=== PATIENT | female | born 1990 | race Caucasian/White ===

== ENCOUNTER 2023-02-06 22:06 | Inpatient (IN) | payer BC ==
[2023-02-06 23:53] LABS: Absolute Lymphocytes (CBC) 2.4 K/uL (0.7-4.9); Hematocrit 34.4 % (36.0-45.0); Lymphocytes % 22.4 % (15.3-44.8); MCV 72.4 fL (80-100); MPV 10.1 fL (7.6-11.3); RBC Red Blood Cell Count 4.75 M/uL (3.86-4.86)
[2023-02-07 00:05] LABS: Albumin 3.7 g/dL (3.4-5.0); Bilirubin Total 0.2 mg/dL (0.2-1.0); Potassium 3.6 mEq/L (3.5-5.1); Protein, Total 7.6 g/dL (6.4-8.2)
[2023-02-07] MEDS ORDERED: ONDANSETRON 4 MG/2 ML VIAL ONE (00:08)
[2023-02-07 00:38] LABS: Specific Gravity 1.007 (1.005-1.030)
[2023-02-07] MEDS ORDERED: MORPHINE 4 MG/ML SYR ONE (00:52)
--- NOTE | 2023-02-07 01:55 | ER ---
Nurse's Notes [facility] Name: Kallie Bethea Age: 33 yrs Sex: Female : 1990 Arrival Date: 02/06/2023 Time: 22:06 Bed 5 Private MD: Diagnosis: Abdominal pain, Generalized;Lower abdominal pain, unspecified;Nausea with vomiting, unspecified Presentation: 02/06 22:26 Chief complaint: Patient states: bilateral lower abdominal pain of 10 with nausea,onset pf1 this AM. Patient stated history of SBO. Patient stated LBM was this AM with normal stool. Coronavirus screen: Vaccine status: Patient reports being unvaccinated. Client denies travel out of the [place] in the last 14 days. At this time, the client does not indicate any symptoms associated with coronavirus-19. Ebola Screen: Patient negative for fever greater than or equal to 101.5 degrees Fahrenheit, and additional compatible Ebola Virus Disease symptoms. Initial Sepsis Screen: Does the patient meet any 2 criteria? No. Patient's initial sepsis screen is negative. Does the patient have a suspected source of infection? No. Patient's initial sepsis screen is negative. Risk Assessment: Do you want to hurt yourself or someone else? Patient reports no desire to harm self or others. 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 Last tetanus immunization: < 10 years ago Flu vaccine is not up to date. - Social history:: Smoking status: Patient denies any tobacco usage or history of. Patient uses alcohol, occasionally. Patient/guardian denies using street drugs. Screenin:05 [facility] ED Fall Risk Assessment (Adult) History of falling in the last 3 months, pf1 including since admission No falls in past 3 months (0 pts) Confusion or Disorientation No (0 pts) Intoxicated or Sedated No (0 pts) Impaired Gait No (0 pts) Mobility Assist Device Used No (0 pt) Altered Elimination No (0 pt) Score/Fall Risk Level 0 - 2 = Low Risk Oriented to surroundings, Maintained a safe environment, Educated pt \T\ family on fall prevention, incl call for assistance when getting out of bed, Assessed \T\ reinforced patient's understanding of fall precautions, Provided non-skid footwear, Hourly rounding (assess needs \T\ fall precautionary measures) done, Used ambulatory aids as needed (educated on \T\ assisted with), Used gait belt as appropriate. Abuse screen: Denies threats or abuse. Nutritional screening: No deficits noted. Tuberculosis screening: No symptoms or risk factors identified. Assessment: 23:00 General: Appears in no apparent distress. uncomfortable, well groomed, well developed, pf1 Behavior is cooperative, appropriate for age, anxious, quiet. 23:00 Pain: Complains of pain in abdomen Pain currently is 10 out of 10 on a pain scale. Pain pf1 began this AM approximately at 0900. Neuro: No deficits noted. Level of Consciousness is awake, alert, obeys commands, Oriented to person, place, time, situation. Cardiovascular: No deficits noted. Capillary refill < 3 seconds Patient's skin is warm and dry. Respiratory: Airway is patent Respiratory effort is even, unlabored, Respiratory pattern is regular, symmetrical, Breath sounds are clear bilaterally. GI: Abdomen is round non-distended, Bowel sounds present X 4 quads. Abd is soft Abdomen is tender to palpation in right lower quadrant and left lower quadrant. : No deficits noted. No signs and/or symptoms were reported regarding the genitourinary system. EENT: No deficits noted. No signs and/or symptoms were reported regarding the EENT system. Derm: No deficits noted. No signs and/or symptoms reported regarding the dermatologic system. Musculoskeletal: No deficits noted. No signs and/or symptoms reported regarding the musculoskeletal system. 23:24 Reassessment: Patient appears in no apparent distress at this time. Patient and/or jb4 family updated on plan of care and expected duration. Pain level reassessed. Patient is alert, oriented x 3, equal unlabored respirations, skin warm/dry/pink. 07/10 01:00 Reassessment: Patient appears in no apparent distress at this time. Patient and/or jb4 family updated on plan of care and expected duration. Pain level reassessed. Patient is alert, oriented x 3, equal unlabored respirations, skin warm/dry/pink. 02:00 Reassessment: Patient appears in no apparent distress at this time. Patient and/or jb4 family updated on plan of care and expected duration. Pain level reassessed. Patient is alert, oriented x 3, equal unlabored respirations, skin warm/dry/pink. 03:00 Reassessment: Patient appears in no apparent distress at this time. Patient and/or jb4 family updated on plan of care and expected duration. Pain level reassessed. Patient is alert, oriented x 3, equal unlabored respirations, skin warm/dry/pink. Vital Signs: 02/06 22:26 BP 145 / 82; Pulse 80; Resp 18; Temp 98.8; Pulse Ox 100% on R/A; Weight 74.84 kg; pf1 Height 5 ft. 0 in. ; Pain 05/10; 02/07 00:00 BP 125 / 64; Pulse 81; Resp 16; Pulse Ox 98% on R/A; jb4 00:27 BP 117 / 63; Pulse 88; Resp 16; Pulse Ox 100% ; kl 01:45 BP 125 / 65; Pulse 90; Resp 16; Pulse Ox 100% on R/A; jb4 03:00 BP 128 / 72; Pulse 72; Resp 16; Pulse Ox 100% on R/A; jb4 02/06 22:26 Body Mass Index 32.22 (74.84 kg, 152.4 cm) pf1 02/06 22:26 Pain Scale: Adult pf1 ED Course: 02/06 22:09 Patient arrived in ED. ja2 22:15 Jean Ward MD is Attending Physician. kdr 22:31 Triage completed. pf1 23:00 No provider procedures requiring assistance completed. Missed attempt(s): 22 gauge in pf1 left antecubital area. Bleeding controlled, band aid applied, catheter tip intact. 23:00 Patient has correct armband on for positive identification. Placed in gown. Bed in low pf1 position. Call light in reach. 23:08 Hira Esparza RN is Primary Nurse. jb4 23:50 Transvaginal Study (Probe) In Process Unspecified. EDMS 02/07 01:03 CT Abd/Pelvis - IV Contrast Only In Process Unspecified. EDMS 01:54 Joni Dove MD is Hospitalizing Provider. kdr 01:54 Brandyn Dove MD is Hospitalizing Provider. kdr Administered Medications: 00:10 Drug: Ondansetron IVP 4 mg Route: IVP; Site: right antecubital; jb4 00:45 Drug: morphine IVP or IV 4 mg Route: IVP; Infused Over: 4 mins; Site: right antecubital;jb4 02:00 Drug: Promethazine IVP 25 mg Route: IVP; Site: right antecubital; kl 02:05 Drug: fentaNYL (PF) IVP 50 mcg Route: IVP; Site: right antecubital; kl 02:05 Drug: NS 0.9% IV 1000 ml Route: IV; Rate: 1 bolus; Site: right antecubital; kl 03:17 Not Given (Physician Discretion): NS 0.9% IV 1000 ml IV at 125 ml/hr continuous jb4 Outcome: 01:55 Decision to Hospitalize by Provider. kdr 03:31 Patient left the ED. kl Signatures: Dispatcher [employer] EDMS Casandra Wells RN RN Jean Wisdom MD MD kdr Hira Esparza RN RN jbJazmin Garcia Pamala, RN RN pf1
--- NOTE | 2023-02-07 01:56 | EDPHYS ---
Physician Documentation [facility] Name: Kallie Bethea Age: 33 yrs Sex: Female : 1990 Arrival Date: 02/06/2023 Time: 22:06 Bed 5 Private MD: ED Physician Jean Ward HPI: 02/07 00:21 This 33 yrs old Female presents to ER via Ambulatory with complaints of Abdominal Pain, kdr Nausea. 00:21 Patient presents with lower abdominal pain more left than right. This started this kdr morning. She states she gets this kind of pain periodically. Often it is associated with her periods. Pain is presently a 10 out of 10. Patient states that she does have a history of small bowel obstruction however she did have a bowel movement this morning which was normal in color and consistency. She states that she normally has similar though not as severe abdominal pain surrounding her periods, today was simply much worse than normal but not unknown to her. She has not had a prior work-up for this situation.. Onset: The symptoms/episode began/occurred acutely, suddenly, this morning. Severity of symptoms: At their worst the symptoms were severe incapacitating in the emergency department the symptoms are unchanged. The patient has experienced similar episodes in the past, multiple times. The patient has not recently seen a physician. 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 Last tetanus immunization: < 10 years ago Flu vaccine is not up to date. - Social history:: Smoking status: Patient denies any tobacco usage or history of. Patient uses alcohol, occasionally. Patient/guardian denies using street drugs. ROS: 02/07 00:21 Constitutional: Negative for fever, chills, and weight loss, Eyes: Negative for injury, kdr pain, redness, and discharge, ENT: Negative for injury, pain, and discharge, Neck: Negative for injury, pain, and swelling, Cardiovascular: Negative for chest pain, palpitations, and edema, Respiratory: Negative for shortness of breath, cough, wheezing, and pleuritic chest pain, Back: Negative for injury and pain, : Negative for injury, bleeding, discharge, and swelling, MS/Extremity: Negative for injury and deformity, Skin: Negative for injury, rash, and discoloration, Neuro: Negative for headache, weakness, numbness, tingling, and seizure activity. Psych: Negative for depression, anxiety, suicide ideation, homicidal ideation, and hallucinations, Allergy/Immunology: Negative for hives, rash, and allergies, Endocrine: Negative for neck swelling, polydipsia, polyuria, polyphagia, and marked weight changes, Hematologic/Lymphatic: Negative for swollen nodes, abnormal bleeding, and unusual bruising. Abdomen/GI: Positive for abdominal pain, nausea, Negative for constipation, abdominal cramps, abdominal distension, anorexia, dysphagia, hematemesis, black/tarry stool, rectal pain, rectal bleeding, bowel incontinence. Exam: 00:21 Constitutional: This is a well developed, well nourished patient who is awake, alert, kdr and in no acute distress. Head/Face: Normocephalic, atraumatic. Eyes: Pupils equal round and reactive to light, extra-ocular motions intact. Lids and lashes normal. Conjunctiva and sclera are non-icteric and not injected. Cornea within normal limits. Periorbital areas with no swelling, redness, or edema. Neck: Trachea midline, no thyromegaly or masses palpated, and no cervical lymphadenopathy. Supple, full range of motion without nuchal rigidity, or vertebral point tenderness. No Meningismus. Chest/axilla: Normal chest wall appearance and motion. Nontender with no deformity. No lesions are appreciated. Cardiovascular: Regular rate and rhythm with a normal S1 and S2. No gallops, murmurs, or rubs. Normal PMI, no JVD. No pulse deficits. Respiratory: Lungs have equal breath sounds bilaterally, clear to auscultation and percussion. No rales, rhonchi or wheezes noted. No increased work of breathing, no retractions or nasal flaring. Back: No spinal tenderness. No costovertebral tenderness. Full range of motion. Skin: Warm, dry with normal turgor. Normal color with no rashes, no lesions, and no evidence of cellulitis. MS/ Extremity: Pulses equal, no cyanosis. Neurovascular intact. Full, normal range of motion. Neuro: Awake and alert, GCS 15, oriented to person, place, time, and situation. Cranial nerves II-XII grossly intact. Motor strength 5/5 in all extremities. Sensory grossly intact. Cerebellar exam normal. Normal gait. Psych: Awake, alert, with orientation to person, place and time. Behavior, mood, and affect are within normal limits. 00:21 Abdomen/GI: Inspection: obese Bowel sounds: active, Palpation: soft, mild abdominal tenderness, in the anterior aspect of left lateral abdomen and left lower quadrant. Vital Signs: 02/06 22:26 BP 145 / 82; Pulse 80; Resp 18; Temp 98.8; Pulse Ox 100% on R/A; Weight 74.84 kg; pf1 Height 5 ft. 0 in. ; Pain 10/10; 02/07 00:00 BP 125 / 64; Pulse 81; Resp 16; Pulse Ox 98% on R/A; jb4 00:27 BP 117 / 63; Pulse 88; Resp 16; Pulse Ox 100% ; kl 01:45 BP 125 / 65; Pulse 90; Resp 16; Pulse Ox 100% on R/A; jb4 03:00 BP 128 / 72; Pulse 72; Resp 16; Pulse Ox 100% on R/A; jb4 02/06 22:26 Body Mass Index 32.22 (74.84 kg, 152.4 cm) pf1 02/06 22:26 Pain Scale: Adult pf1 MDM: 00:21 Data reviewed: vital signs, nurses notes, lab test result(s), radiologic studies. kdr 01:55 Patient medically screened. kdr 02/06 22:42 Order name: CBC with Diff; Complete Time: 00:18 kdr 02/06 22:42 Order name: CMP; Complete Time: 00:18 kdr 02/06 22:42 Order name: Lipase; Complete Time: 00:18 kdr 02/06 23:03 Order name: Test, Urine; Complete Time: 01:16 kdr 02/06 23:03 Order name: US Transvaginal Study (Probe) kdr 02/07 00:19 Order name: CT Abd/Pelvis - IV Contrast Only kdr 02/06 22:42 Order name: IV Saline Lock; Complete Time: 23:08 kdr 02/06 22:42 Order name: Labs collected and sent; Complete Time: 23:08 kdr Administered Medications: 00:10 Drug: Ondansetron IVP 4 mg Route: IVP; Site: right antecubital; jb4 00:45 Drug: morphine IVP or IV 4 mg Route: IVP; Infused Over: 4 mins; Site: right antecubital;jb4 02:00 Drug: Promethazine IVP 25 mg Route: IVP; Site: right antecubital; kl 02:05 Drug: fentaNYL (PF) IVP 50 mcg Route: IVP; Site: right antecubital; kl 02:05 Drug: NS 0.9% IV 1000 ml Route: IV; Rate: 1 bolus; Site: right antecubital; kl 03:17 Not Given (Physician Discretion): NS 0.9% IV 1000 ml IV at 125 ml/hr continuous jb4 Disposition Summary: 02/07/23 01:55 Hospitalization Ordered Hospitalization Status: Inpatient Admission kdr Provider: Brandyn Dove kdr Location: Telemetry/MedSur (Inpatient) kdr Condition: Fair kdr Problem: an acute exacerbation kdr Symptoms: have improved kdr Bed/Room Type: Standard kdr Room Assignment: 207(02/07/23 02:36) cg Diagnosis - Abdominal pain, Generalized kdr - Lower abdominal pain, unspecified kdr - Nausea with vomiting, unspecified kdr Forms: - Medication Reconciliation Form kdr - SBAR form kdr Signatures: Dispatcher [employer] EDCasandra Rosado RN RN kl Rittger, Kevin, MD MD kdr Elizabeth Becker RN RN cg Bryson, James, RN RN jb4 Wendi Sullivan RN RN pf1 Corrections: (The following items were deleted from the chart) 02:36 01:55 kdr cg
[2023-02-07] MEDS ORDERED: PROMETHAZINE INJ 25 MG/ML AMP ONE (02:13)
[2023-02-07] MEDS ORDERED: NA CHLORIDE 0.9% 1,000 ML ONE (02:14)
[2023-02-07] MEDS ORDERED: FENTANYL CITR 100 MCG/2 ML ONE (02:14)
--- NOTE | 2023-02-07 02:32 | P.HP ---
Certification for Inpatient Patient admitted to: Inpatient With expected LOS: >2 Midnights Patient will require the following post-hospital care: None Practitioner: I am a practitioner with admitting privileges, knowledge of patient current condition, hospital course, and medical plan of care. Services: Services provided to patient in accordance with Admission requirements found in Title 42 Section 412.3 of the Code of Federal Regulations <Jan Wang - Last Filed: 02/07/23 02:29> Patient History Date of Service: 02/07/23 Reason for admission: SBO History of Present Illness: 33-year-old female with history of anxiety, insomnia, previous SBO presents to the emergency department chief complaint of nausea, vomiting, lower abdominal pain. She reports she began to develop bowel obstructions a few years ago, she had 3-4 bowel obstructions while living in [place] before a surgeon performed an ex lap on her to attempt to determine the cause of her bowel obstructions, she reports that the surgeon told her her bowel had adhesed to her ovary, it was released and she had improvement in her symptoms/frequency of bowel obstructions, at that time apparently there was a yo in one of her ureters as well requiring her to have surgery to repair the ureter as well. Since the surgery back in 2018 or 2019 she has had 1-2 other small bowel obstructions, she has not needed additional surgery since then. She began having abdominal pain on the morning of 02/06/2023, she reports a normal bowel movement that morning, puente s had 2 episodes of vomiting throughout the course of the day. She was evaluated in the emergency department her labs are significant for hemoglobin 10.7 hematocrit 34.4 glucose [address] abdomen pelvis showed possible early small bowel obstruction versus ileus. Patient still having moderate pain, nausea will need to be admitted for further management. Patient declined NG tube at this time, will except if symptoms are worsening. 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 moist/pink, EOMI, Sclerae nonicteric Neck: Supple, 2+ carotid pulse no bruit, No LAD, Without JVD or thyroid abnormality Respiratory: Clear to auscultation bilaterally, Normal air movement Cardiovascular: No edema, Regular rate/rhythm, Normal S1 S2 Capillary refill: <2 Seconds Gastrointestinal: Hypoactive, Tenderness (Mild abdominal tenderness left lower quadrant, epigastric) Musculoskeletal: No tenderness Integumentary: No rashes Neurological: Normal speech, Normal strength at 5/5 x4 extr, Normal tone, Normal affect - Studies Laboratory Data (last 24 hrs) 02/06/23 23:00: Sodium 139, Potassium 3.6, BUN 10, Creatinine 0.79, Glucose 111 H, Total Bilirubin 0.2, AST 11 L, ALT 24, Alkaline Phosphatase 95, Lipase 22 02/06/23 23:00: WBC 10.60, Hgb 10.7 L, Hct 34.4 L, Plt Count 310 <Jan Wang - Last Filed: 02/07/23 02:29> - Studies Laboratory Data (last 24 hrs) 02/06/23 23:00: Sodium 139, Potassium 3.6, BUN 10, Creatinine 0.79, Glucose 111 H, Total Bilirubin 0.2, AST 11 L, ALT 24, Alkaline Phosphatase 95, Lipase 22 02/06/23 23:00: WBC 10.60, Hgb 10.7 L, Hct 34.4 L, Plt Count 310 <Brandyn Dove - Last Filed: 02/07/23 17:06> Assessment and Plan - Plan Assessment: SBO Anxiety/insomnia Plan: SBO N.p.o., IVF, as needed pain medications and antiemetics, ambulation encouraged. General surgery consult in place. Declined NG tube at this time states symptoms have improved, agreeable to NG tube if she has worsening pain, vomiting or distention. Appreciate further per neurosurgery. Anxiety/insomnia Continue home meds when diet is advanced. DVT PPX: SCD Code status: Full Discharge Plan: Home Plan to discharge in: 48 Hours - Advance Directives Does patient have a Living Will: No Does patient have a Durable POA for Healthcare: No - Code Status/Comfort Care Code Status Assessed: Yes (Full code) Critical Care: No Time Spent Managing Pts Care (In Minutes): 55 <Jan Wang - Last Filed: 02/07/23 02:29> - Plan Seen and examined on rounds this afternoon doing better +flatus, No BM +nausea, minimal discomfort, still feels bloated KUB less obstructive pattern as seen on CT Dr. Quintanilla consulted anticipate slow advancement continue IVF, antibiotics anticipate dc in 24-48hrs <Brandyn Dove - Last Filed: 02/07/23 17:06>
[2023-02-07] MEDS: NA CHLORIDE 0.9% 1,000 ML IV SCH ×4 (03:46→15:36)
[2023-02-07] MEDS ORDERED: ONDANSETRON 4 MG/2 ML VIAL IV PRN (03:46)
[2023-02-07 05:03] VITALS: BMI 32.2
[2023-02-07 05:17] LABS: Absolute Lymphocytes (CBC) 2.2 K/uL (0.7-4.9); Hematocrit 30.5 % (36.0-45.0); Lymphocytes % 20.8 % (15.3-44.8); MCV 72.9 fL (80-100); MPV 9.8 fL (7.6-11.3); RBC Red Blood Cell Count 4.18 M/uL (3.86-4.86)
--- NOTE | 2023-02-07 08:04 | RAD REPORT ---
EXAM DESCRIPTION: RAD - Abdomen 1 View (KUB) - 02/07/2023 5:19 am CLINICAL HISTORY: eval sbo COMPARISON: Abdomen Pelvis W Contrast dated 02/07/2023 TECHNIQUE: Single AP view of the abdomen. FINDINGS: Excreted contrast in the right renal collecting system and bladder. Nonobstructive bowel gas pattern although paucity of bowel gas noted along the lower abdomen, nonspec ific. Mild stool burden along the ascending colon. No air-fluid levels, free air, or pneumatosis. No suspicious calcifications. No significant bony abnormality. IMPRESSION: Nonspecific paucity of bowel gas are noted along the lower abdomen. Nonobstructive bowel gas pattern otherwise. Findings as above.
[2023-02-07] MEDS: MORPHINE 2 MG/ML SYR IV PRN (09:10)
[2023-02-07] MEDS: CIPROFLOXACIN 400mg IV 400 MG/200 ML BAG IV SCH ×2 (09:20→19:57)
[2023-02-07] MEDS: METRONIDAZOLE 500mg IVPB 500 MG/100 ML BAG IV SCH ×2 (09:21→17:53)
[2023-02-07] MEDS ORDERED: ONDANSETRON 4 MG/2 ML VIAL IV ONE (12:37)
--- NOTE | 2023-02-07 14:06 | RAD REPORT ---
EXAM DESCRIPTION: CT - Abdomen Pelvis W Contrast - 02/07/2023 7:19 am CLINICAL HISTORY: 33 years, Female, ABD PAIN COMPARISON: None. TECHNIQUE: Contrast-enhanced images of the abdomen and pelvis were performed utilizing 5 mm slice th ickness at 5 mm interval reconstruction from the lung bases to the ischial tuberosities after the adm inistration of IV contrast. In addition multiplanar reformats in the coronal and sagittal plane were obtained and reviewed. This exam was performed according to our departmental dose-optimization protocol, which includes auto mated exposure control, adjustment of the mA and/or kV according to patient size and/or use of iterat pieter reconstruction technique. FINDINGS: The lung bases demonstrate to be clear. The liver, pancreas, spleen and adrenal glands demonstrate to be unremarkable, no focal lesions are n oted. The gallbladder demonstrate to be within normal limits. There is no evidence for significant in flammatory changes. The common bile duct demonstrate to be within normal limits. The kidneys demonstrate normal uptake of contrast media. No evidence for nephrolithiasis and/or hydro nephrosis. Grossly the unopacified stomach, small bowel and large bowel demonstrate to be within normal limits. There are minimally dilated distal small bowel loops extending down to the pelvis with fecalization d istal small bowel loop. No evidence for significant transition point and findings could correspond to partial bowel obstruction/or ileus. The large bowel is unremarkable. There is mild fecal stasis.. The urinary bladder demonstrate to be unremarkable. The uterus demonstrate to be within normal limi ts. There are left adnexal cystic lesion measuring 3.6 x 3.6 cm on image 65. The aorta demonstrate to be normal. There is no retroperitoneal lymphadenopathy. There is no evidence for ascites/or abno rmal fluid collections. The rest of the soft tissue and bony structures are within normal limits. IMPRESSION: Minimally dilated distal small bowel loops extending down to the pelvis with fecalizatio n distal small bowel loop. No evidence for significant transition point, findings could correspond to partial bowel obstruction/or ileus correlate clinically. 3.6 cm left adnexal simple-appearing cyst. No follow-up imaging is recommended. Reference: JACR 2019;17(2):[id number] Electronically signed by: Jim Martinez MD 02/07/2023 1:29 AM CDT Due to temporary technical issues with the PACS/Fluency reporting system, reports are being signed by the in house radiologist without review as a courtesy to ensure prompt reporting. The interpreting r adiologist is fully responsible for the content of the report.
--- NOTE | 2023-02-07 14:09 | RAD REPORT ---
EXAM DESCRIPTION: US - Transvaginal Study Probe - 02/06/2023 11:48 pm CLINICAL HISTORY: 33 years Female ABD PAIN COMPARISON: None TECHNIQUE: Transabdominal and endovaginal pelvic ultrasound was performed. FINDINGS: The uterus appears unremarkable and measures 8.2 cm longitudinally.. The endometrial strip e appears unremarkable and measures 7 mm in thickness.. The right ovary measures 3.1 x 2 x 2.3 cm. The right ovary appears unremarkable. There is normal bloo d flow seen within the ovary. The left ovary measures 4.3 x 4.1 x 3.6 cm. Dominant follicles in the left ovary, largest measuring a pproximately 2.3 cm in diameter... There is normal blood flow seen within the left ovary. IMPRESSION: 1. Dominant follicles in the left ovary, largest measuring approximately 2.3 cm in sabine meter. 2. Vascular flow documented in the ovaries bilaterally. Electronically signed by: Jeremy Nielsen MD 02/07/2023 12:26 AM CDT Due to temporary technical issues with the PACS/Fluency reporting system, reports are being signed by the in house radiologist without review as a courtesy to ensure prompt reporting. The interpreting r adiologist is fully responsible for the content of the report.
[2023-02-07] MEDS ORDERED: MINERAL OIL 30 ML UCUP PO ONE (14:47)
[2023-02-07] MEDS ORDERED: NA CHLORIDE 0.9% 500 ML IV ONE (14:50)
--- NOTE | 2023-02-07 15:40 | P.CNS ---
Date of Consult: 02/07/23 PC: This 33-year-old female presented to the emergency room with severe abdominal pain for diagnosis and treatment. HPC: Patient has recently moved into the area from [place]. She noticed over the last day or so she has been having some abdominal pain. Describes as very severe. Has not been able to have bowel movements. PSHx: Patient has had previous exploratory laparotomy with lysis of adhesions. PMHx: Negative Social Hx: Has some food allergies Sys R: No cough, wheeze, shortness of breath. No chest pain or palpitations. Denies any urinary complaints. States that she has been drinking a lot of water, not being on physical activity. Has noticed that over the last 12 hours or so however her abdomen has making a lot of a lot of noise. No BM yet, but thinks she is about to pass gas. O/E: Awake alert vital signs are stable HEENT: Negative Chest: Chest movement equal bilaterally Abd: Mildly distended minimal tenderness [place]: Intact Data: CT exam demonstrates small bowel down in the true pelvis. Also has some fecalization of the distal portion of her small bowel. Stool is seen from the right colon around to almost descending colon. Impression: GI dysmotility Plan: I will give her a bolus of IV fluids, encourage patient to ambulate, we will also start her on some mineral oil. I anticipate this problem should resolve in the next 12 to 24 hours. She does not require surgical intervention at this time.
--- NOTE | 2023-02-07 20:06 | P.PN ---
Date of Service: 02/08/23 Subjective: ROS: 10 point ROS as noted above, otherwise negative Physical Exam: Gen: Alert, NAD, AOx3 HEENT: normal conjunctiva, sclera anicteric CV: regular rate & rhythm, no edema Pulm: non-labored respirations on room air, clear bilaterally Abd: soft,mild epigastric tenderness, non-distended MSK: no joint tenderness Neuro: normal speech, normal affect, moves all extremities Problem List: 1. SBO 2. Anxiety/insomnia Plan: NPO Continue IVF PRN pain medications and antiemetics Continue Cipro and Flagyl (02/07-) ambulation encouraged General surgery consulted Continue home meds when diet is advanced. VTE: SCD
[2023-02-08] MEDS: METRONIDAZOLE 500mg IVPB 500 MG/100 ML BAG IV SCH ×3 (00:17→17:05)
[2023-02-08] MEDS: NA CHLORIDE 0.9% 1,000 ML IV SCH ×2 (02:28→11:50)
[2023-02-08] MEDS: MORPHINE 2 MG/ML SYR IV PRN (03:35)
[2023-02-08 04:13] LABS: Absolute Lymphocytes (CBC) 2.3 K/uL (0.7-4.9); Hematocrit 30.7 % (36.0-45.0); Lymphocytes % 30.7 % (15.3-44.8); MCV 73.2 fL (80-100); MPV 9.8 fL (7.6-11.3); RBC Red Blood Cell Count 4.19 M/uL (3.86-4.86)
[2023-02-08 04:21] LABS: Potassium 3.6 mEq/L (3.5-5.1)
[2023-02-08] MEDS ORDERED: KCL 20 MEQ/100 mL IVPB 20 MEQ/100 ML BAG IV SCH (05:00)
--- NOTE | 2023-02-08 08:03 | RAD REPORT ---
EXAM DESCRIPTION: RAD - Abdomen 1 View (KUB) - 02/08/2023 5:08 am CLINICAL HISTORY: eval sbo Pain COMPARISON: Abdomen 1 View (KUB) dated 02/07/2023 FINDINGS: The bowel gas pattern is non-obstructive. No evidence of free air or pneumatosis. No suspi cious calcifications. No significant bony findings. Moderate constipation. IMPRESSION: Moderate constipation.
[2023-02-08] MEDS ORDERED: MINERAL OIL 30 ML UCUP PO ONE (10:46)
[2023-02-08] MEDS: CIPROFLOXACIN 400mg IV 400 MG/200 ML BAG IV SCH (11:48)
[2023-02-08 13:28] VITALS: O2SAT 98
--- NOTE | 2023-02-08 14:20 | P.PN ---
Date of Service: 02/08/23 S: Patient states she feels much better today, has had been having a lot of rumblings in her belly. Passing a lot of gas per rectum. Also had small bowel movement. O: Abdomen soft, nontender, mildly distended no guarding or rebound A: Patient's partial SBO appears to be resolving. P: Clinically the patient is much improved since her admission. I feel her partial SBO has virtually resolved. I have ordered some more mineral oil for her today. We have discussed long-term maintenance, with maintaining hydration. Possible surgical consultation in [place] regarding possible laparoscopy and/or release of adhesions as well as colonoscopy may be pertinent for this patient. She understands and wants to proceed in that direction.
[2023-02-08 17:10] VITALS: BP 109/53; TEMP 98.3
== END 2023-02-08 18:25 | disposition home or self-care (01) | DRG 390 ==
LOC: ER 22:06 → 2ND 02-07 02:22
PROVIDERS: ADMIT Hospitalist; ATTEND Hospitalist
DX: K56.600 Partial intestinal obstruction, unspecified as to cause (principal); G47.00 Insomnia, unspecified; F41.9 Anxiety disorder, unspecified; Z91.018 Allergy to other foods; Z28.310 Unvaccinated for COVID-19
CPT/HCPCS: 36415; 74018; 74177; 76830; 80048; 80053; 81025; 83690; 85025; 96374; 96375; 99284; J0744; J2270; J2405; J2550; J3010; J3480; J7030; Q9967

== ENCOUNTER 2024-11-22 11:14 | Emergency (ER) | payer BC ==
--- OUTSIDE RECORDS SUMMARY | 2024-11-22 11:18 | XMS REPORT | Continuity of Care Document ---
Author Name Unknown Address [address] [facility] Jonathon. [address] [place] [address] [facility] Address [address] [facility]. 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 Name Role Phone Esther Ramirez Primary Care Physician ROBIN MEDINA Attending Clinician Unavailable ROBIN MEDINA Attending Clinician Unavailable AISHWARYA MOHR Attending Clinician Unavailable LES SOTO Attending Clinician Unavailab LES Banerjee Attending Clinician Unavailab WESTON Martin Attending Clinician Unavailable CARMELO VU Attending Clinician Unavailable Carmelo Vu MD Attending Clinician [phone] Les Soto NP Attending Clinician [phone], [facility] Attending Clinician Unavailable Jazmin Joyner Attending Clinician + Doctor Unassigned, [place] Attending Clinician U Jazmin Dumont Attending Clinician + Doctor Unassigned, [place] Attending Clinician U LULU Davis Attending Clinician Unavailable Carmelo Vu MD Attending Clinician [phone] JAZMIN ADAMS Attending Clinician Unavailable HERNANDEZ ROCA Attending Clinician Unavailtila Welch MD, Harpreet Attending Clinician [phone] ABEL SANTO Attending Clinician Unavailable ABEL SANTO Attending Clinician Unavailable Jena Martinez Attending Clinician [phone], [facility] Attending Clinician Unavailable [facility] Attending Clinician Wu Manning MD Attending Clinician WU DAVIS Attending Clinician WU Manning Attending Clinician Coy Azul MD Attending Clinician Draw, [facility] Attending Clinician JENA Tucker Attending Clinician Unavailtila e Payers Payer Name Policy Type Policy Number Effective Date Expirati on Date Source [facility] [id number] 2023 00:00:00 Allergies, Adverse Reactions, Alerts Allergy Name Allergy Type Status Severity Reaction(s) Onset Date Inactive Date Treating Clinician Comments Source Avocado Propensi ty to adverse reaction s Active Unknown - See comments - 00:00: 00 [facility] Cantalou pe Propensi ty to adverse reaction s Active Unknown - See comments - 00:00: 00 [facility] Coconut Propensi ty to adverse reaction s Active Unknown - See comments - 00:00: 00 [facility] CANTALOU PE Food Active Unknown-Cmnt - 00:00: 00 [facility] COCONUT DRUG INGREDI Active Unknown-Cmnt - 00:00: 00 [facility] AVOCADO DRUG INGREDI Active Unknown-Cmnt - 00:00: 00 [facility] TOMATO DRUG INGREDI Active Other-Cmnt 2022-08 00:00: 00 [facility] Tomato Propensi ty to adverse reaction s Active Other - See comments 2022-08 00:00: 00 [facility] NO KNOWN ALLERGIE S Drug Class Active [facility] Social History Social Habit Start Date Stop Date Quantity Comments Source History of tobacco use Cigarette Smoker [facility] ASSERTION Not [facility] History of Social function 2024-11-05 00:00:00 2024-11-05 00:00:00 [facility] Alcoholic beverage intake 2024-11-05 00:00:00 2024-11-05 00:00:00 Ex-drinker (finding) [facility] Alcohol intake 2023-09-19 00:00:00 2023-09-19 00:00:00 Ex-drinker (finding) [facility] Tobacco use and exposure 2023-06-27 00:00:00 2023-06-27 00:00:00 Smokeless tobacco non-user [facility] Sex assigned at 1990 00:00:00 1990 00:00:00 [facility] Smoking Status Start Date Stop Date Source Tobacco smoking consumption unknown [facility] Ex-smoker 2023-06-27 00:00:00 2023-06-27 00:00:00 [facility] Medications Ordered Medication Name Filled Medication Name Start Date Stop Date Current Medication? Ordering Clinician Indication Dosage Frequency Signature (SIG) Comments Components Source doxepin 25 mg capsule 11-05 00:00: 00 Yes [id number] 25mg Take 1 capsule by mouth at bedtime. [facility] cyanocobala min 1,000 mcg/mL injection 11-05 00:00: 00 Yes [id number] 1000ug inject 1 mL under the skin every 14 (fourteen) days. Twice monthly. [facility] Syringe-Nee dle, Safety,Disp Un 3 mL 25 gauge x 5/8" Syrg 11-05 00:00: 00 Yes [id number] Use as directed [facility] SERTraline 25 mg tablet 11-05 00:00: 00 Yes [id number] 25mg Take 1 tablet by mouth in the morning. [facility] prazosin 2 mg capsule 11-05 00:00: 00 11-05 00:00 :00 Yes [id number] 4mg Take 2 capsules by mouth at bedtime. [facility] HYDROXYZINE 50 mg tablet 2023-08 2-16 00:00: 00 Yes [id number] 50mg TAKE 1 TABLET BY MOUTH AT BEDTIME NEEDED FOR ANXIETY (AND INSONMIA). [facility] triamcinolo ne acetonide 0.1 % topical cream 2023-08 00:00: 00 Yes 1% Dylan Preciado doxycycline monohydrate 100 mg capsule 2023-08 00:00: 00 Yes 1mg Dylan Preciado prazosin 2 mg capsule 2023-0816 00:00: 00 11-05 00:00 :00 No [id number] 2mg Take 1 capsule by mouth at bedtime. [facility] SERTRALINE 25 mg tablet 2023-08 00:00: 00 11-05 00:00 :00 No [id number] TAKE BY MOUTH 1/2 TABLET IN THE MORNING [facility] hydrOXYzine 50 mg tablet 04-11 00:00: 00 07-16 00:00 :00 No [id number] 50mg TAKE 1 TABLET BY MOUTH AT BEDTIME NEEDED FOR ANXIETY (AND INSONMIA). [facility] cyanocobala min (DODEX) injection 2,000 mcg 03-16 15:00: 00 03-17 02:59 :00 No [id number] 2000ug [facility] prazosin 1 mg capsule 03-16 00:00: 00 05-16 00:00 :00 No [id number] 1mg Take 1 capsule by mouth at bedtime. 1 mg at bedtime, after 2 to 3 days increase dose to 2 mg at bedtime [facility] hydrOXYzine 50 mg tablet 03-16 00:00: 00 04-11 00:00 :00 No [id number] 50mg Take 1 tablet by mouth at bedtime as needed for Anxiety (and Insonmia). [facility] TRAZODONE 50 mg tablet 02-22 00:00: 00 03-16 00:00 :00 No [id number] 25mg TAKE 1/2 TABLET BY MOUTH AT BEDTIME [facility] NaCl 0.9% (NS) bolus infusion 1,000 mL 01-25 19:45: 00 01-25 20:25 :00 No 1000mL at 999 mL/hr, 1,000 mL, IV Piggyback, ONCE, 1 dose, On Myrtle 01/26/24 at 1445, STAT [facility] Lactobacill no.46/B.tutu robert (PROBIOTIC- 10 ORAL) 01-25 16:08: 06 Yes 10mg Take by mouth. Women's probiotic pearls [facility] B Complex Vitamins tablet 01-25 00:00: 00 Yes [id number] 1{tbl} Take 1 tablet by mouth in the morning. [facility] Cholecalcif selma, Vitamin D3, (VITAMIN D3) 125 mcg (5,000 unit) tablet 01-25 00:00: 00 Yes [id number] 5000U Take 1 tablet by mouth in the morning. [facility] ferrous sulfate 325 mg (65 mg iron) EC tablet 01-01 08:20: 26 Yes 325mg Take 1 tablet by mouth in the morning and 1 tablet at noon and 1 tablet in the evening. Take with meals. [facility] traZODone 50 mg tablet 01-01 00:00: 00 02-22 00:00 :00 No [id number] 25mg Take 0.5 tablets by mouth at bedtime. [facility] SERTRALINE 25 mg tablet 11-07 00:00: 00 05-10 00:00 :00 No [id number] TAKE BY MOUTH 1/2 TABLET IN THE MORNING [facility] mupirocin 2 % ointment 10-16 00:00: 00 01-01 00:00 :00 No [id number] Apply to area(s) 3 (three) times daily. To affected are on breast [facility] clindamycin 2 % cream 10-16 00:00: 00 10-22 04:59 :00 No [id number] 1{appli cator} Insert 1 Applicator into vagina at bedtime for 5 days. [facility] amitriptyli ne 10 mg tablet 2024-0 3-07 00:00: 00 01-01 00:00 :00 No [id number] 10mg Take 1 tablet by mouth at bedtime. [facility] SERTraline 25 mg tablet 3-07 00:00: 00 11-07 00:00 :00 No [id number] 12.5mg Take 0.5 tablets by mouth in the morning. [facility] SERTraline 25 mg tablet 2- 00:00: 00 10-04 00:00 :00 No [id number] 12.5mg Take 0.5 tablets by mouth in the morning for 90 days. [facility] amitriptyli ne 10 mg tablet 2- 00:00: 00 10-04 00:00 :00 No [id number] 10mg Take 1 tablet by mouth at bedtime. [facility] amitriptyli ne 10 mg tablet 1- 00:00: 00 09-19 00:00 :00 No [id number] 10mg Take 1 tablet by mouth at bedtime. [facility] amitriptyli ne 10 mg tablet 2022-08 2-28 00:00: 00 08-25 00:00 :00 No [id number] 10mg Take 1 tablet by mouth at bedtime. [facility] venlafaxine XR 37.5 mg 24 hr capsule 2022-08 1- 00:00: 00 09-19 00:00 :00 No [id number] 37.5mg Take 1 capsule by mouth daily with breakfast. [facility] amitriptyli ne 10 mg tablet 2022-08 1- 00:00: 00 07-27 00:00 :00 No [id number] 10mg Take 1 tablet by mouth at bedtime. [facility] Vital Signs Vital Name Observation Time Observation Value Comments Maria E cavazos Systolic blood pressure 2024-11-05 18:34:00 127 mm[Hg] [facility] Diastolic blood pressure 2024-11-05 18:34:00 81 mm[Hg] [facility] Heart rate 2024-11-05 18:34:00 85 /min Unive [facility] Body temperature 2024-11-05 18:34:[address] [facility] Body height 2024-11-05 18:34:00 152.4 cm [facility] weight 2024-11-05 18:34:00 76.658 kg [facility] BMI 2024-11-05 18:34:00 33.01 kg/m2 [facility] Oxygen saturation in Arterial blood by Pulse oximetry 2024-11-05 18:34:00 98 /min [facility] Systolic blood pressure 2024-03-16 13:32:00 123 mm[Hg] [facility] Diastolic blood pressure 2024-03-16 13:32:00 74 mm[Hg] [facility] Heart rate 2024-03-16 13:32:00 88 /min Unive [facility] Body temperature 2024-03-16 13:32:[address] [facility] Body height 2024-03-16 13:32:00 152.4 cm [facility] Body weight 2024-03-16 13:32:00 75.252 kg [facility] BMI 2024-03-16 13:32:00 32.40 kg/m2 [facility] Oxygen saturation in Arterial blood by Pulse oximetry 2024-03-16 13:32:00 98 /min [facility] Systolic blood pressure 2024-01-30 18:22:00 121 mm[Hg] [facility] Diastolic blood pressure 2024-01-30 18:22:00 73 mm[Hg] [facility] Heart rate 2024-01-30 18:22:00 85 /min Un[facility] Body temperature 2024-01-30 18:22:[address] [facility] Body height 2024-01-30 18:22:00 152.4 cm [facility] Body weight 2024-01-30 18:22:00 74.889 kg [facility] BMI 2024-01-30 18:22:00 32.24 kg/m2 [facility] Oxygen saturation in Arterial blood by Pulse oximetry 2024-01-30 18:22:00 97 /min [facility] Systolic blood pressure 2024-01-26 21:03:00 118 mm[Hg] [facility] Diastolic blood pressure 2024-01-26 21:03:00 81 mm[Hg] [facility] Heart rate 2024-01-26 21:03:00 73 /min [facility] Respiratory rate 2024-01-26 21:03:00 16 /min [facility] Oxygen saturation in Arterial blood by Pulse oximetry 2024-01-26 21:03:00 100 /min [facility] Body temperature 2024-01-26 20:59:[address] [facility] Body height 2024-01-26 18:29:00 152.4 cm [facility] Body weight 2024-01-26 18:29:00 73.483 kg [facility] BMI 2024-01-26 18:29:00 31.64 kg/m2 [facility] Systolic blood pressure 2024-01-17 12:38:00 112 mm[Hg] [facility] Diastolic blood pressure 2024-01-17 12:38:00 74 mm[Hg] [facility] Heart rate 2024-01-17 12:38:00 77 /min [facility] Body temperature 2024-01-17 12:38:[address] [facility] Respiratory rate 2024-01-17 12:38:00 18 /min [facility] Body height 2024-01-17 12:38:00 152.4 cm [facility] Body weight 2024-01-17 12:38:00 73.664 kg [facility] BMI 2024-01-17 12:38:00 31.72 kg/m2 [facility] Systolic blood pressure 2024-01-02 13:12:00 113 mm[Hg] [facility] Diastolic blood pressure 2024-01-02 13:12:00 74 mm[Hg] [facility] Heart rate 2024-01-02 13:12:00 88 /min [facility] 2024-01-02 13:12:[address] [facility] Body weight 2024-01-02 13:12:00 74.39 kg [facility] BMI 2024-01-02 13:12:00 32.03 kg/m2 [facility] Oxygen saturation in Arterial blood by Pulse oximetry 2024-01-02 13:12:00 100 /min [facility] Systolic blood pressure 2023-10-28 18:06:00 115 mm[Hg] [facility] Diastolic blood pressure 2023-10-28 18:06:00 67 mm[Hg] [facility] Heart rate 2023-10-28 18:06:00 90 /min [facility] Respiratory rate 2023-10-28 18:06:00 16 /min [facility] Body height 2023-10-28 18:06:00 152.4 cm [facility] Body weight 2023-10-28 18:06:00 74.645 kg [facility] BMI 2023-10-28 18:06:00 32.14 kg/m2 [facility] Oxygen saturation in Arterial blood by Pulse oximetry 2023-10-28 18:06:00 99 /min [facility] Systolic blood pressure 2023-10-17 13:24:00 113 mm[Hg] [facility] Diastolic blood pressure 2023-10-17 13:24:00 73 mm[Hg] [facility] Heart rate 2023-10-17 13:24:00 78 /min [facility] Body temperature 2023-10-17 13:24:[address] [facility] Body height 2023-10-17 13:24:00 152.4 cm [facility] Body weight 2023-10-17 13:24:00 75.025 kg [facility] BMI 2023-10-17 13:24:00 32.30 kg/m2 [facility] Oxygen saturation in Arterial blood by Pulse oximetry 2023-10-17 13:24:00 99 /min [facility] Systolic blood pressure 2023-09-19 14:02:00 131 mm[Hg] [facility] Diastolic blood pressure 2023-09-19 14:02:00 77 mm[Hg] [facility] Heart rate 2023-09-19 14:02:00 96 /min Un[facility] Body temperature 2023-09-19 14:02:[address] [facility] Body height 2023-09-19 14:02:00 152.4 cm [facility] Body weight 2023-09-19 14:02:00 77.111 kg [facility] BMI 2023-09-19 14:02:00 33.20 kg/m2 [facility] Oxygen saturation in Arterial blood by Pulse oximetry 2023-09-19 14:02:00 100 /min [facility] Systolic blood pressure 2023-06-27 14:16:00 128 mm[Hg] [facility] Diastolic blood pressure 2023-06-27 14:16:00 76 mm[Hg] [facility] Heart rate 2023-06-27 14:16:00 102 /min [facility] Body temperature 2023-06-27 14:16:[address] [facility] Respiratory rate 2023-06-27 14:16:00 18 /min [facility] Body height 2023-06-27 14:16:00 152.4 cm [facility] Body weight 2023-06-27 14:16:00 75.615 kg [facility] BMI 2023-06-27 14:16:00 32.56 kg/m2 [facility] Oxygen saturation in Arterial blood by Pulse oximetry 2023-06-27 14:16:00 100 /min [facility] BP Diastolic 2024-07-05 16:05:00 80 mm[Hg] Jonathon Preciado Weight Measured 2024-07-05 16:05:00 162.00 pounds Dylan Preciado Height Measured 2024-07-05 16:05:00 61.75 inches Dylan Preciado Body Temperature 2024-07-05 16:05:00 99.00 degrees Dylan Preciado Heart Rate 2024-07-05 16:05:00 77.00 /min Allison Preciado Respiratory Rate 2024-07-05 16:05:00 16.00 /min Dylan Preciado BP Systolic 2024-07-05 16:05:00 130 mm[Hg] Redd Preciado Procedures Procedure Date / Time Performed Performing Clinician Source FREE T4 2024-03-16 14:05:00 Les Soto Un [facility] THYROID STIMULATING HORMONE 2024-03-16 14:05:[address] [facility] FREE T3 2024-03-16 14:05:00 Les Soto [facility] C-REACTIVE PROTEIN 2024-03-16 14:05:[address] [facility] SEDIMENTATION RATE 2024-03-16 14:05:[address] [facility] ANTI-NUCLEAR ANTIBODY SCREEN 2024-03-16 14:05:[address] [facility] POCT TEST 2024-01-26 19:25:[address] [facility] MAGNESIUM 2024-01-26 19:14:00 Abel Santo [facility] COMP. METABOLIC PANEL ([id number]) 2024-01-26 19:14:[address] [facility] CBC WITH DIFF 2024-01-26 19:14:00 Abel Santo [facility] URINALYSIS 2024-01-26 19:14:00 Abel Santo [facility] RAPID STREP SCREEN FOR GROUP A 2024-01-26 19:14:[address] [facility] COVID-19 (ID NOW RAPID TESTING) 2024-01-26 19:14:[address] [facility] SLEEP STUDY DATA REPORT 2024 17:53:23 Doct or Unassigned, [place] [facility] LAB ONLY PAP SMEAR-LIQUID BASED 2023-10-17 14:16:[address] [facility] HIGH RISK HPV-THIN PREP 2023-10-17 14:16:[address] [facility] PAP SMEAR-LIQUID BASED-CP 2023-10-17 14:16:[address] [facility] PATIENT FINANCIAL RESPONSIBILITY - ALL FORMS 2023-10-17 05:01:00 Doctor Unassigned, [place] [facility] CONSENT/REFUSAL FOR DIAGNOSIS AND TREATMENT 2023-09-19 13:47:42 Doctor Unassigned, [place] [facility] ASSIGNMENT OF BENEFITS 2023-06-27 13:50:47 Docto r Unassigned, [place] [facility] Encounters Start Date/Time End Date/Time Encounter Type Admission Type Attending [facility] Facility Care Department Encounter ID Source 2025-02-04 13:30:00 2025-02-04 13:30:00 Outpatient R LES SOTO OGECHUKWU [facility] [id number] [facility] 2025-01-09 20:00:00 2025-01-09 20:00:00 Outpatient R WESTON MARSH [facility] [id number] [facility] 2024-11-16 00:00:00 2024-11-16 16:34:10 Telephone [facility] [place] ..840.114 350.1.13.10 4.2.7.2.686 [id number] [facility] 2024-11-12 00:00:00 2024-11-12 08:24:58 Telephone Les Soto [facility] ..840.114 350.1.13.10 4.2.7.2.686 [id number] [facility] 2024-11-05 00:00:00 2024-11-05 16:53:35 Telephone Brittany, [facility] 1.2.840.114 350.1.13.10 4.2.7.2.686 [id number] [facility] 2024-11-05 15:45:00 2024-11-05 16:00:00 Campus Aide Visit 2, Adc Lab Les Soto 2, [facility] 1.2.840.114 350.1.13.10 4.2.7.2.686 [id number] [facility] 2024-11-05 15:45:00 2024-11-05 14:19:49 Outpatient R BRITTANY EDWINLAURA CHANDEION [facility] [id number] [facility] 2024-11-05 13:30:00 2024-11-05 14:08:31 Office Visit Nina [facility] 1.2.840.114 350.1.13.10 4.2.7.2.686 [id number] [facility] 2024-07-15 00:00:00 2024-07-16 12:48:14 Refill Les [facility] 1.2.840.114 350.1.13.10 4.2.7.2.686 [id number] [facility] 2024-07-05 16:01:25 2024-07-05 16:01:25 Outpatient [facility] [id number] Dylan Preciado 2024-07-05 00:00:00 2024-07-05 00:00:00 Outpatient Visit [facility] [id number] Dylan Preciado 2024-05-17 00:00:00 2024-05-17 09:48:59 Refill Les Soto [facility] 1.2.840.114 350.1.13.10 4.2.7.2.686 [id number] [facility] 2024-05-15 00:00:00 2024-05-16 08:46:45 Patient Secure Msg Les Soto [facility] 1.2.840.114 350.1.13.10 4.2.7.2.686 [id number] [facility] 2024-05-09 00:00:00 2024-05-10 10:17:29 Refill Jazmin Adams [facility] 1.2.840.114 350.1.13.10 4.2.7.2.686 [id number] [facility] 2024-03-26 00:00:00 2024-04-28 18:24:39 Patient Secure Msg Doctor Unassigned, [place] Doctor Unassigned, [place] [place] [facility] 1.2840.114 350.1.13.10 4.2.7.2.686 [id number] [facility] 2024-04-27 00:00:00 2024-04-27 15:36:12 Telephone Carmelo Vu [facility] [place] 1.2.840.114 350.1.13.10 4.2.7.2.686 [id number] [facility] 2024-04-19 20:00:00 2024-04-19 20:00:00 Outpatient R [facility] [id number] [facility] 2024-04-07 00:00:00 2024-04-11 07:30:48 Refill Nina Sotomerarimague [facility] 1.2840.114 350.1.13.10 4.2.7.2.686 [id number] [facility] 2024-04-06 20:00:00 2024-04-06 20:00:00 Outpatient R [facility] [id number] [facility] 2024-04-03 09:30:00 2024-04-03 09:30:00 Outpatient R LES SOTO OGECHUKWU [facility] [id number] [facility] 2024-03-21 00:00:00 2024-03-22 08:12:20 Patient Secure Msg Brittany Les [facility] 1.2.840.114 350.1.13.10 4.2.7.2.686 [id number] [facility] 2024-03-16 00:00:00 2024-03-19 09:23:22 Refill BrittanyLes olson [facility] 1.2.840.114 350.1.13.10 4.2.7.2.686 [id number] [facility] 2024-03-16 00:00:00 2024-03-16 16:01:41 Telephone Brittany Les [facility] N[facility] 1.2.840.114 350.1.13.10 4.2.7.2.686 [id number] [facility] 2024-03-16 09:15:00 2024-03-16 09:15:00 Campus Aide Visit 2, Adc Lab BrittanyLes 2, Adc Lab [facility] N[facility] 1.2.840.114 350.1.13.10 4.2.7.2.686 [id number] [facility] 2024-03-16 09:15:00 2024-03-16 09:14:10 Outpatient R LES SOTO OGECHUKWMague [facility] [id number] [facility] 2024-03-16 08:30:00 2024-03-16 08:57:18 Office Visit BrittanyLes [facility] 1.2.840.114 350.1.13.10 4.2.7.2.686 [id number] [facility] 2024-03-05 00:00:00 2024-03-06 10:23:53 Telephone Carmelo Vu [facility] [place] 1.2840.114 350.1.13.10 4.2.7.2.686 [id number] [facility] 2024-02-23 00:00:00 2024-02-23 14:31:35 Jazmin Nelson [facility] 1.2840.114 350.1.13.10 4.2.7.2.686 [id number] [facility] 2024-02-09 20:00:00 2024-02-09 20:00:00 Outpatient R [facility] [id number] [facility] 2024-02-07 08:30:00 2024-02-07 08:30:00 Outpatient R LES SOTO OGECHUKWU [facility] [id number] [facility] 2024-01-03 00:00:00 2024-02-04 18:21:30 Patient Secure Msg Doctor Unassigned, [facility] 1.840.114 350.1.13.10 4.2.7.2.686 [id number] [facility] 2024-01-31 00:00:00 2024-02-01 10:15:44 Telephone Carmelo Vu [facility] 1.2840.114 350.1.13.10 4.2.7.2.686 [id number] [facility] 2024-01-30 11:00:00 2024-01-30 23:59:00 Hospital Encounter Jazmin Adams [facility] 1.840.114 350.1.13.10 4.2.7.2.686 [id number] [facility] 2024-01-30 13:15:00 2024-01-30 16:22:57 Outpatient R CARMELO VU [facility] [id number] [facility] 2024-01-30 13:15:00 2024-01-30 16:22:57 Office Visit Carmelo Vu [facility] 1.840.114 350.1.13.10 4.2.7.2.686 [id number] [facility] 2024-01-26 00:00:00 2024-01-26 16:28:02 Telephone Obi-Harpreet Pham [facility] [facility] NAL [facility] 1.0.114 350.1.13.10 4.2.7.2.686 [id number] 044 [id number] [facility] 2024-01-26 13:32:00 2024-01-26 16:07:00 Emergency X ABEL SANTO ANDRES [facility] [id number] [facility] 2024-01-26 13:32:00 2024-01-26 16:07:00 Emergency Abel Santo [facility] 1.0.114 350.1.13.10 4.2.7.2.686 [id number] [facility] 2024-01-05 00:00:00 2024-01-17 15:43:20 Patient Secure julian Suzanne Jena Meyeramaris [facility] 1.2840.114 350.1.13.10 4.2.7.2.686 [id number] [facility] 2024-01-17 10:15:00 2024-01-17 10:30:00 Campus Aide Visit 2, Adc Lab Lulu Medley [facility] 1.2.840.114 350.1.13.10 4.2.7.2.686 [id number] [facility] 2024-01-17 10:15:00 2024-01-17 08:50:27 Outpatient R LULU MEDLEY [facility] [id number] [facility] 2024-01-17 07:30:00 2024-01-17 08:05:44 Office Visit Lulu Medley [facility] 1.2.840.114 350.1.13.10 4.2.7.2.686 [id number] [facility] 2024-01-10 00:00:00 2024-01-10 00:00:00 Outpatient R JAZMIN ADAMS [facility] [id number] [facility] 2024-01-03 09:00:00 2024-01-03 09:15:00 Campus Aide Visit Tech, [facility] Wu Davis [facility] 1.2.840.114 350.1.13.10 4.2.7.2.686 [id number] [facility] 2024-01-03 09:00:00 2024-01-03 09:00:00 Outpatient R WU DAVIS STRADERell [facility] [id number] [facility] 2024-01-02 08:30:00 2024-01-02 10:46:34 Outpatient R JAZMIN ADAMS [facility] [id number] [facility] 2024-01-02 09:45:00 2024-01-02 10:00:00 Campus Aide Visit 2, Meenakshi Lab Jazmin Adams [facility] BU[facility] 1.2.840.114 350.1.13.10 4.2.7.2.686 [id number] [facility] 2024-01-02 08:30:00 2024-01-02 09:00:00 Office Visit Jazmin Adams [facility] NAL BUILDING 1.2.840.114 350.1.13.10 4.2.7.2.686 [id number] 044 [id number] [facility] 2023-11-29 09:00:00 2023-11-29 09:00:00 Outpatient R [facility] [id number] [facility] 2023-11-14 08:00:00 2023-11-14 08:00:00 Outpatient R MAYO ADAMSSSICA [facility] [id number] [facility] 2023-11-08 00:00:00 2023-11-08 00:00:00 Coy Olea [facility] BU[facility] 1.2.840.114 350.1.13.10 4.2.7.2.686 [id number] [facility] 2023-10-31 08:00:00 2023-10-31 08:00:00 Outpatient R JAZMIN ADAMS [facility] [id number] [facility] 2023-10-28 14:00:00 2023-10-28 14:15:00 Campus Aide Visit Draw, Clc-Bls Lab Jena Palacios [facility] OFFICE BUILDING 1.2.840.114 350.1.13.10 4.2.7.2.686 [id number] [facility] 2023-10-28 13:00:00 2023-10-28 13:39:35 Outpatient R JENA PALACIOS RUTH [facility] [id number] [facility] 2023-10-28 13:00:00 2023-10-28 13:39:35 Office Visit Jean Palacios [facility] 1.2.840.114 350.1.13.10 4.2.7.2.686 [id number] [facility] 2023-10-17 08:00:00 2023-10-17 08:50:32 Outpatient R NINA SOTOMerariMague BRITTANYLES [facility] [id number] [facility] 2023-10-17 08:00:00 2023-10-17 08:50:32 Office Visit Les Soto [facility] BU[facility] 1.2.840.114 350.1.13.10 4.2.7.2.686 [id number] [id number] [facility] 2023-10-17 08:00:00 2023-10-17 08:00:00 Outpatient R ANGIE JAZMIN [facility] [id number] [facility] 2023-10-17 00:00:00 2023-10-17 00:00:00 Orders Only Doctor Unassigned, [facility] 1.2840.114 350.1.13.10 4.2.7.2.686 [id number] [facility] 2023-10-05 00:00:00 2023-10-05 00:00:00 Refill Jazmin Adams [facility] BU[facility] 1.2.840.114 350.1.13.10 4.2.7.2.686 [id number] 044 [id number] [facility] 2023-09-19 08:00:00 2023-09-19 08:24:02 Office Visit Jazmin Adams [facility] 1.2.840.114 350.1.13.10 4.2.7.2.686 [id number] 044 [id number] [facility] 2023-09-19 08:00:00 2023-09-19 08:24:02 Outpatient R JAZMIN ADAMS [facility] [id number] [facility] 2023-09-19 00:00:00 2023-09-19 00:00:00 Orders Only Doctor Unassigned, [facility] 1.2.840.114 350.1.13.10 4.2.7.2.686 [id number] [facility] 2023-08-25 00:00:00 2023-08-25 00:00:00 [facility] 1.2.840.114 350.1.13.10 4.2.7.2.686 [id number] [facility] 2023-08-08 08:00:00 2023-08-08 08:00:00 Outpatient Rubio JAZMIN ADAMS [facility] [id number] [facility] 2023-07-28 00:00:00 2023-07-28 00:00:00 Mary AdamsMayoJazmin [facility] 1.2.840.114 350.1.13.10 4.2.7.2.686 [id number] [id number] [facility] 2023-07-27 00:00:00 2023-07-27 00:00:00 Reftorres Mayo Adamsssica [facility] BU[facility] 1.2.840.114 350.1.13.10 4.2.7.2.686 [id number] [id number] [facility] 2023-06-27 11:15:00 2023-06-27 11:15:00 Campus Aide Visit 2, Adc Lab Les Soto [facility] N[facility] BUILD[facility] 1.2.840.114 350.1.13.10 4.2.7.2.686 [id number] [facility] 2023-06-27 08:00:00 2023-06-27 08:40:09 Outpatient R LES SOTO OGECHUKWU [facility] [id number] [facility] 2023-06-27 08:00:00 2023-06-27 08:40:09 Office Visit Jazmin Adams Laura Sotoukdeion [facility] 1..840.114 350.1.13.10 4.2.7.2.686 [id number] [id number] [facility] 2023-06-27 00:00:00 2023-06-27 00:00:00 Orders Only Doctor Unassigned, [facility] 1..840.114 350.1.13.10 4.2.7.2.686 [id number] [facility] Results Test Description Test Time Test Comments Results Result Co mments Source [facility] Eszgytm3370-97-12 20:53:30* Test Item Value Reference Range Interpretation Comme nts CRP (test code = 0317982427) 0.7 mg/dL <=0.8 Lab Interpretation (test cod e = 34040-9) Normal [facility] [id number] 17:13:17* Test Item Value Reference Range Interpretation Comme nts FREE T4 (test code = 1418128782) 0.96 0.78-2.20 Lab Interpretation (test cod e = 09666-0) Normal [facility] Hospital[facility]yroid Stimulating Qvkalnx3936-52-70 17:06:53 * Test Item Value Reference Range Interpretation Comme nts TSH (test code = 3497203238) 1.18 0.45-4.70 Lab Interpretation (test cod e = 22095-5) [facility] [id number] 16:52:54* Test Item Value Reference Range Interpretation Comme nts FREE T3 (test code = 6505561601) 3.78 pg/mL 2.77-5.27 Lab Interpretation (test cod e = 49882-1) Normal [facility] HospitalSedimentation Gxow1164-04-98 15:11:23* Test Item Value Reference Range Interpretation Comme nts ESR (test code = 37873-1) 6 0-20 Lab Interpretation (test cod e = 32984-5) Normal [facility] HospitalMagnesium2024-06-27 20:03:04* Test Item Value Reference Range Interpretation Comme nts MAGNESIUM (test code = 0578059104) 2.3 mg/dL 1.7-2.4 Lab Interpretation (test cod e = 43553-3) [facility] (60371)2024-01-26 20:02:49* Test Item Value Reference Range Interpretation Comme nts NA (test code = 1991276296) 140 mmol/L 135-145 K (test code = 8133581665) 4.4 mmol/L 3.5-5.0 CL (test code = 5941741013) 107 mmol/L 98-108 CO2 TOTAL (test code = 2448645553) 21 mmol/L 23-31 L AGAP (test code = 8111857597) 12 2-16 BUN (test code = 7861495844) 12 mg/dL 7-23 GLUCOSE (test code = 5591915326) 94 mg/dL 70-110 CREATININE (test code = 2160-0) 0.64 mg/dL 0.50-1.04 TOTAL BILI (test code = 6037352954) 0.3 mg/dL 0.1-1.1 CALCIUM (test code = 3632434830) 8.9 mg/dL 8.6-10.6 T PROTEIN (test code = 9778440763) 7.5 g/dL 6.3-8.2 ALBUMIN (test code = 0356595574) 4.4 g/dL 3.5-5.0 ALK PHOS (test code = 1618220253) 93 U/L 34-122 ALTv (test code = 1742-6) 20 U/L 5-35 AST(SGOT) (test code = 4170093094) 23 U/L 13-40 eGFR (test code = 64064-8) 120.6 mL/min/1.73m2 CKD-EPI eGFR (2020). Assuming creatinine has been stable day-to-day for at least three months, the eGFR indicates Category G1 (>= 90 mL/min/1.73 m2) Lab Interpretation (test code = 11913-2) Abnormal [facility] with Rsqu3766-25-33 19:48:01* Test Item Value Reference Range Interpretation Comme nts WBC (test code = 6690-2) 8.23 4.30-11.10 RBC (test code = 789-8) 5.18 3.93-5.25 HGB (test code = 718-7) 14.1 g/dL 11.6-15.0 HCT (test code = 4544-3) 45.1 % 35.7-45.2 MCV (test code = 787-2) 87.1 fL 80.6-95.5 MCH (test code = 785-6) 27.2 pg 25.9-32.8 MCHC (test code = 786-4) 31.3 g/dL 31.6-35.1 L RDW-SD (test code = 76264-6) 55.2 fL 39.0-49.9 H RDW-CV (test code = 788-0) 17.2 % 12.0-15.5 H PLT (test code = 777-3) 317 166-358 MPV (test code = 30111-0) 11.6 fL 9.5-12.9 NRBC/100 WBC (test code = 1088078140) 0.0 0.0-10.0 NRBC x10^3 (test code = 1332512689) See_Comment [Automated messa ge] The system which generated this result transmitted reference range: 10*3/?L. The reference range was not used to interpret this result as normal/abnormal. GRAN MAT (NEUT) % (test code = 770-8) 67.5 % IMM GRAN % (test code = 4635569552) 0.40 % LYMPH % (test code = 736-9) 23.1 % MONO % (test code = 5905-5) 7.4 % EOS % (test code = 713-8) 1.2 % BASO % (test code = 706-2) 0.4 % GRAN MAT x10^3(ANC) (test code = 1922750421) 5.56 10*3/uL 1.88-7.09 IMM GRAN x10^3 (test code = 8420183174) 0.03 10*3/uL 0.00-0.06 LYMPH x10^3 (test code = 731-0) 1.90 10*3/uL 1.32-3.29 MONO x10^3 (test code = 742-7) 0.61 10*3/uL 0.33-0.92 EOS x10^3 (test code = 711-2) 0.10 10*3/uL 0.03-0.39 BASO x10^3 (test code = 704-7) 0.03 10*3/uL 0.01-0.07 Lab Interpretation (test code = 40564-4) Abnormal [facility] [id number] 19:25:00* Test Item Value Reference Range Interpretation Comme nts POCT PREG (test code = 1605) Negative On board controls acceptable with C Line (test code = 3574) Yes POCT PREG LOT # (test code = 3575) [id number] POCT PREG TEST DATE ( test code = 3576) Lab Interpretation (test cod e = 91891-1) Normal [facility] STUDY DATA [id number] 17:53:23 Ordered by an unspecified provider.[facility] STUDY DATA SJAQDB7929-62-83 17:53:23Ordered by an unspecified provider.[facility] Notes Date/Time Note Provider Source 2024-11-16 16:28:09 Called and spoke with patient. Advised patient that since it has been several months since her last visit she will need to present to clinic before resubmission to insurance. Patient verbalizes understanding and is agreeable. Appointment scheduled. Kendal Escalona RN [facility] 2024-11-16 15:42:14 Kallie Johnson is a 34 year old female Pt calling following up on insurance approval for surgery pt would like to know if she needs to be seen in clinic please advise [phone] Clay Hillman [facility] 2024-11-05 16:52:20 Call placed to pt, per HIPOLITO Adan note pt to start on 2000mcg then 1000mcg. Can continue b complex supplement not b-12 supplement. Questions and concerns addressed. Verbalizes understanding and agrees w/POC. Angle Mcclain RN [facility] 2024-11-05 15:45:00 Images from the original note were not included. Venipuncture collection performed by clean technique on the left anticubitus. Total of 1 attempts were made. Slight pressure and a bandage/dressing were applied to the site(s). The patient experienced no complications. The following specimens were processed according to instructions and sent to [facility] per lab order on 11/05/2024 : LT BLUE SST 4 RED LAV 2 PPT DK GREEN (LiHep) DK GREEN (SodH) [place] DK BLUE (K2) DK BLUE (S) ACD Blood Culture NIPT/NTD [facility] 2024-11-05 15:35:11 Kallie Johnson is a 34 year old female The patient was seen today and prescribed B12 injections. She is wanting to know if she should continue the B Complex pills. She is also wanting to know when to take the first injection. Please call [phone]. Snehal Yoo [facility] 2024-07-16 12:44:38 Images from the original note were not included. Routed to provider for review. Unable to refill per ambulatory refill guidelines. Notes: Name from pharmacy: HYDROXYZINE HCL 50 MG TABLET Will file in chart as: HYDROXYZINE 50 mg tablet Sig: TAKE 1 TABLET BY MOUTH AT BEDTIME NEEDED FOR ANXIETY (AND INSONMIA). Disp: 90 tablet Refills: 0 (Pharmacy requested: Not specified) Start: 07/15/2024 Class: eRX Non-formulary For: Primary insomnia Last ordered: 3 months ago (04/11/2024) by Les Soto NP Last refill: 04/21/2024 Rx #: [id number] Allergy: hydroxyzine Qrodfc2207/15/2024 01:21 AM Protocol Details Valid encounter within last 12 months Depression screening completed in the last 12 months To be filled at: [id number] - [address] Last Refilled: 04/21/24 Recent Visits Date Type Provider Dept 03/16/24 Office Visit Les Soto NP [facility] 01/02/24 Office Visit Jazmin Adams FNP [facility] 10/17/23 Office Visit Les Soto NP [facility] 09/19/23 Office Visit Jazmin Adams FNP [facility] 06/27/23 Office Visit Jazmin Adams FNP [facility] Showing recent visits within past 540 days with a meds authorizing provider and meeting all other requirements Future Appointments No visits were found meeting these conditions. Showing future appointments within next 150 days with a meds authorizing provider and meeting all other requirements MOTIVE DETAILER Jazmin Watts MA [facility]2024-10-17 09:46:28 Images from the original note were not included. Duplicate Notes: prazosin 2 mg capsule Possible duplicate: Hover to review recent actions on this medication Sig: Take 1 capsule by mouth at bedtime. Disp: 60 capsule Refills: 2 Start: 05/17/2024 Class: eRX Non-formulary For: Primary insomnia, Nightmares Last ordered: Yesterday (05/16/2024) by Les Soto NP BPH- Alpha Blockers Dvlzpi4905/17/2024 07:53 AM Protocol Details Valid encounter within last 12 months To be filled at: [id number], [place] - [address] Last Refilled: 05/16/2024 Recent Visits Date Type Provider Dept 03/16/24 Office Visit Les Soto NP [facility] 01/02/24 Office Visit Jazmin Adams FNP [facility] 10/17/23 Office Visit Les Soto NP [facility] 09/19/23 Office Visit Jazmin Adams FNP [facility] 06/27/23 Office Visit Jazmin Adams FNP [facility] Showing recent visits within past 540 days with a meds authorizing provider and meeting all other requirements Future Appointments No visits were found meeting these conditions. Showing future appointments within next 150 days with a meds authorizing provider and meeting all other requirements [facility] 07:53:26 Images from the original note were not included. [facility] CenterRvznzd6842-61-88 08:28:48 Images from the original note were not included. Routed to provider for review. Unable to refill per ambulatory refill guidelines. Notes: Name from pharmacy: SERTRALINE HCL 25 MG TABLET Will file in chart as: SERTRALINE 25 mg tablet Sig: TAKE BY MOUTH 1/2 TABLET IN THE MORNING Disp: 45 tablet Refills: 1 Start: 05/09/2024 Class: eRX For: Depression with anxiety Last ordered: 6 months ago (11/08/2023) by OSCAR Mendoza Last refill: 02/13/2024 Rx #: [id number] Psychiatry: Antidepressants Eqfgzu4205/09/2024 08:27 AM Protocol Details Manual Review: Verify no changes in dose in the last 3 months Valid encounter within last 12 months To be filled at: [id number] - [place], [place] - [address] Last Refilled: 02/13/24 Recent Visits Date Type Provider Dept 03/16/24 Office Visit Les Soto NP [facility] 01/02/24 Office Visit Jazmin Adams FNP [facility] 10/17/23 Office Visit Les Soto NP [facility] 09/19/23 Office Visit Jazmin Adams FNP [facility] 06/27/23 Office Visit Jazmin Adams FNP [facility] Showing recent visits within past 540 days with a meds authorizing provider and meeting all other requirements Future Appointments No visits were found meeting these conditions. Showing future appointments within next 150 days with a meds authorizing provider and meeting all other requirements Jazmin Watts MAAdams County Regional Medical CenterGgpzyq9790-75-70 15:32:41 Called BC/BS to check status of Pre-D and was told policy termed 04/01/24. Called patient to see if she had new insurance - VM was full Nuvia ColeAdams County Regional Medical CenterQsmecz4501-46-16 08:45:20 Images from the original note were not included. Changes Requested Name from pharmacy: HYDROXYZINE HCL 50 MG TABLET Will file in chart as: HYDROXYZINE 50 mg tablet Sig: Take 1 tablet by mouth at bedtime as needed for Anxiety (and Insonmia). Disp: 90 tablet Refills: 2 Start: 04/07/2024 Class: eRX Non-formulary For: Primary insomnia Last ordered: 3 weeks ago (03/16/2024) by Les Soto NP Last refill: 03/16/2024 Rx #: [id number] Pharmacy comment: REQUEST FOR 90 DAYS PRESCRIPTION. DX Code Needed. Allergy: hydroxyzine Tvednr1704/07/2024 03:49 PM Protocol Details Valid encounter within last 12 months Depression screening completed in the last 12 months This request has changes from the previous prescription. To be filled at: [id number] - [place], [place] - [address] Rehana Martin MAAdams County Regional Medical CenterEgndpo6044-02-90 10:08:45 03/30 re-submitted request. Per Lori at / [place] prior request not found. She started via phone and clinicals and photos were emailed to [email or web address] Nuvia ColeAdams County Regional Medical CenterAficfx5928-86-26 09:21:19 Images from the original note were not included. duplicate Notes: Name from pharmacy: PRAZOSIN 1 MG CAPSULE Will file in chart as: PRAZOSIN 1 mg capsule Possible duplicate: Hover to review recent actions on this medication Sig: Take 1 capsule by mouth at bedtime. 1 mg at bedtime, after 2 to 3 days increase dose to 2 mg at bedtime Disp: 90 capsule Refills: Not specified Start: 03/16/2024 Class: eRX For: Primary insomnia, Nightmares Last ordered: 3 days ago (03/16/2024) by Les Soto NP Last refill: 03/16/2024 Rx #: [id number] BPH- Alpha Blockers Idnxtv4303/16/2024 02:40 PM Protocol Details Valid encounter within last 12 months To be filled at: [facility]pharmacy [facility][id number] - [place], [place] - [address] Last Refilled: 03/16/24-sent Recent Visits Date Type Provider Dept 03/16/24 Office Visit Les Soto NP [facility] 01/02/24 Office Visit Jazmin Adams FNP [facility] 10/17/23 Office Visit Les Soto NP [facility] 09/19/23 Office Visit Jazmin Adams FNP [facility] 06/27/23 Office Visit Jazmin Adams FNP [facility] Showing recent visits within past 540 days with a meds authorizing provider and meeting all other requirements Future Appointments Date Type Provider Dept 04/03/24 Appointment Les Soto NP [facility] Showing future appointments within next 150 days with a meds authorizing provider and meeting all other requirements Jazmin Watts MAAdams County Regional Medical CenterZixnub7996-73-85 16:00:58 Left detailed message on pharmacy VM with verba to dispense 90 tabs as this is what was ordered. Angle Mcclain RNAdams County Regional Medical CenterAinppy6033-90-19 14:47:36 Images from the original note were not included. Ingrid CheungAdams County Regional Medical CenterGlddqy1116-69-74 09:15:00 Images from the original note were not included. Venipuncture collection performed by clean technique on the left anticubitus. Total of 1 attempts were made. Slight pressure and a bandage/dressing were applied to the site(s). The patient experienced no complications. The following specimens were processed according to instructions and sent to [facility] per lab order on 03/16/2024: LT BLUE SST 4 RED LAV 1 PPT DK GREEN (LiHep) DK GREEN (SodH) [place] DK BLUE (K2) DK BLUE (S) ACD Blood Culture NIPT/NTD Yuliet HannonAdams County Regional Medical CenterLrxacg0174-09-86 16:35:05 Pre-D resubmitted to BC/BS for . Via portal. BC/BS stated the original request was missing documentation. Nuvia ColeAdams County Regional Medical CenterReyubl2225-70-93 16:18:32 Pre-d submitted to BC/BS for Patient KALLIE JOHNSON 1990 [id number] Provider [facility] [id number] Payer Payer Logo BCBSTX Details $0 01/31/2024 01/31/2024 [id number] Nuvia ColeAdams County Regional Medical CenterLsumnz1107-44-31 16:24:52 Pt presented to clinic after D/C from ER, Pt was D/C 1606. has reviewed labs and reports WNL, Informed pt to follow ER D/C instructions, schedule a f/u appt in our office for 1 week, and is sx's worsen pt to return to ER. Pt verbalizes understanding and agrees w/POC. Angle Mcclain RNAdams County Regional Medical CenterNnfamy8426-31-52 16:05:53 Patient given printed and verbal discharge instructions regarding weakness. . 2Prescriptions provided Discussed ibuprofen and to take with food to avoid GI distress. Discussed antibiotic therapy and to take until all completed unless adverse reaction occurs - if occurs, discontinue medication and follow up with pcp/seek medical attention Discussed tramadol/phenergan/Tylenol # 3 side affects and to avoid driving/operating machinery/or engaging in activities requiring alertness while taking. Pt verbalized understanding of instructions, pt awake alert oriented, resp reg unlabored, skin w/d, color appropriate for race, moves all ext well,pt encouraged to follow up with pcp. Advised to seek medical attention for new/prolonged/worsening of symptoms. No adverse reaction to meds given in ER noted upon discharge PIV d'cd, dressing to site, catheter in tact. Awake, alert oriented, resp reg unlabored, skin w/d, pt leaving amb with steady gait, in no apparent distress. Efrain Cooney RNAdams County Regional Medical CenterVaaflw5814-45-81 13:26:59 Pt presents to ED with c/o feeling tired, dizzy (feels like on boat), low grade fever, headache, sore throat. Pt states she has felt like this since Tuesday. Pt to brayden asa this a.m. Radha Calvo [facility] - Rexecd0308-23-61 13:16:00 [facility] Department Note Patient Name: Kallie Johnson Date of : 1990 34 year old female Treatment [facility]: [facility] Primary Care Physician: Jazmin Adams Patient Escorted by: Family [5] Mode of Arrival: Personal means [1] EMS Treatment Prior to ED Arrival: [employer]CHANDISER treatment: None Travel and Exposure Screening: Symptoms Does patient have any of these symptoms?: (not recorded) Exposure Screening Has patient had contact with someone with a communicable disease in the last month?: (not recorded) Diseases exposed to:: (not recorded) Is Patient ?: (not recorded) Exposure Date: (not recorded) Chief Complaint: Chief Complaint Patient presents with Sore Throat Headache Fatigue History of Present Illness: Pt presents to ED with c/o feeling tired, dizzy (feels like on boat), low grade fever, headache, sore throat. Pt states she has felt like this since Tuesday. History provided by: Patient paper finisher used: No Weakness Location: Generalized weakness, sore throat, malaise, fatigue, dizziness Severity: Mild Onset quality: Gradual Duration: 2 days Timing: Constant Progression: Worsening Chronicity: New Associated symptoms: fatigue, fever and sore throat Associated symptoms: no abdominal pain, no chest pain, no congestion, no cough, no diarrhea, no ear pain, no headaches, no myalgias, no nausea, no rash, no rhinorrhea, no shortness of breath, no vomiting and no wheezing Risk factors: History of anemia due to dysfunctional uterine bleeding Past Medical History/Immunizations: Past Medical History: Diagnosis Date Allergic rhinitis Anemia Anxiety Bowel obstruction Depression Migraines Tetanus received in last 5 years: Unknown Allergies: Allergies Allergen Reactions Avocado Unknown - See comments Cantalope [Cantaloupe] Unknown - See comments Coconut Unknown - See comments Tomato Other - See comments Past Social History: Tobacco Use Former; Types: Cigarettes Smokeless Tobacco: Never used smokeless tobacco. Alcohol Use Not Currently. Drug Use Not Currently. Sexual Activity Sexually active; Partners: Male; Control/Protection: None. Comments: LSE-01/14/2024 Past Surgical History: Past Surgical History: Procedure Laterality Date LYSIS OF ABDOMINAL ADHESIONS Review of Systems: Review of Systems Constitutional: Positive for activity change, appetite change, fatigue and fever. Negative for chills and diaphoresis. HENT: Positive for sore throat. Negative for congestion, ear discharge, ear pain, rhinorrhea and trouble swallowing. Eyes: Negative for photophobia, pain, discharge and redness. Respiratory: Negative for cough, chest tightness, shortness of breath and wheezing. Cardiovascular: Negative for chest pain, palpitations and leg swelling. Gastrointestinal: Negative for abdominal distention, abdominal pain, blood in stool, constipation, diarrhea, nausea and vomiting. Genitourinary: Negative for dysuria, urgency, polyuria, frequency, hematuria and flank pain. Musculoskeletal: Negative for arthralgias, joint swelling, myalgias and neck stiffness. Skin: Negative for color change, rash and wound. Neurological: Positive for dizziness and weakness. Negative for seizures, syncope, facial asymmetry, light-headedness, numbness and headaches. Psychiatric/Behavioral: Negative for agitation, confusion, hallucinations and self-injury. The patient is not nervous/anxious. Hematological: Negative for adenopathy and cold intolerance. Does not bruise/bleed easily. Endocrine: Negative for cold intolerance, polydipsia and polyuria. Physical Exam: ED Triage Vitals [01/26/24 1329] Weight 73.5 kg (162 lb) Actual or estimated Height 1.524 m (5') BP 128/82 Pulse 74 Resp 18 Temp 37.2 ?C (99 ?F) Temp src SpO2 100 % Measured on Room air Physical Exam Vitals and nursing note reviewed. Constitutional: General: She is awake. She is not in acute distress. Appearance: Normal appearance. She is well-developed and well-groomed. She is not ill-appearing, toxic-appearing or diaphoretic. HENT: Head: Normocephalic and atraumatic. Right Ear: External ear normal. Left Ear: External ear normal. Nose: Nose normal. Mouth/Throat: Lips: No lesions. Mouth: No injury, oral lesions or angioedema. Pharynx: No pharyngeal swelling, oropharyngeal exudate or posterior oropharyngeal erythema. Tonsils: No tonsillar exudate or tonsillar abscesses. Eyes: General: No scleral icterus. Right eye: No discharge. Left eye: No discharge. Conjunctiva/sclera: Conjunctivae normal. Pupils: Pupils are equal, round, and reactive to light. Neck: Thyroid: No thyromegaly. Vascular: No JVD. Trachea: No tracheal deviation. Cardiovascular: Rate and Rhythm: Normal rate and regular rhythm. Heart sounds: Normal heart sounds. No murmur heard. No friction rub. No gallop. Pulmonary: Effort: Pulmonary effort is normal. No respiratory distress. Breath sounds: Normal breath sounds. No stridor. No wheezing or rales. Chest: Chest wall: No tenderness. Abdominal: General: Bowel sounds are normal. There is no distension. Palpations: Abdomen is soft. There is no mass. Tenderness: There is no abdominal tenderness. There is no guarding or rebound. Musculoskeletal: General: No tenderness or deformity. Normal range of motion. Cervical back: Normal range of motion and neck supple. Lymphadenopathy: Cervical: No cervical adenopathy. Skin: General: Skin is warm and dry. Coloration: Skin is not pale. Findings: No erythema or rash. Neurological: Mental Status: She is alert and oriented to person, place, and time. Cranial Nerves: No cranial nerve deficit. Motor: No abnormal muscle tone. Coordination: Coordination normal. Deep Tendon Reflexes: Reflexes are normal and symmetric. Reflexes normal. Psychiatric: Behavior: Behavior normal. Behavior is cooperative. Thought Content: Thought content normal. Judgment: Judgment normal. Radiology: No orders to display Lab Results: Lab Results CBC WITH DIFF - Abnormal Result Value Ref Range WBC 8.23 4.30 - 11.10 10*3/?L RBC 5.18 3.93 - 5.25 10*6/?L HGB 14.1 11.6 - 15.0 g/dL HCT 45.1 35.7 - 45.2 % MCV 87.1 80.6 - 95.5 fL MCH 27.2 25.9 - 32.8 pg MCHC 31.3 (*) 31.6 - 35.1 g/dL RDW-SD 55.2 (*) 39.0 - 49.9 fL RDW-CV 17.2 (*) 12.0 - 15.5 % PLT 317 166 - 358 10*3/?L MPV 11.6 9.5 - 12.9 fL NRBC/100 WBC 0.0 0.0 - 10.0 /100 WBCs NRBC x103<0.01 10*3/?L GRAN MAT (NEUT) % 67.5 % IMM GRAN % 0.40 % LYMPH % 23.1 % MONO % 7.4 % EOS % 1.2 % BASO % 0.4 % GRAN MAT x103(ANC) 5.56 1.88 - 7.09 10*3/uL IMM GRAN x1030.03 0.00 - 0.06 10*3/uL LYMPH x1031.90 1.32 - 3.29 10*3/uL MONO x1030.61 0.33 - 0.92 10*3/uL EOS x1030.10 0.03 - 0.39 10*3/uL BASO x1030.03 0.01 - 0.07 10*3/uL COMP. METABOLIC PANEL (73707) - Abnormal NA 140 135 - 145 mmol/L K 4.4 3.5 - 5.0 mmol/L CL 107 98 - 108 mmol/L CO2 TOTAL 21 (*) 23 - 31 mmol/L AGAP 12 2 - 16 BUN 12 7 - 23 mg/dL GLUCOSE 94 70 - 110 mg/dL CREATININE 0.64 0.50 - 1.04 mg/dL TOTAL BILI 0.3 0.1 - 1.1 mg/dL CALCIUM 8.9 8.6 - 10.6 mg/dL T PROTEIN 7.5 6.3 - 8.2 g/dL ALBUMIN 4.4 3.5 - 5.0 g/dL ALK PHOS 93 34 - 122 U/L ALTv 20 5 - 35 U/L AST(SGOT) 23 13 - 40 U/L eGFR 120.6 mL/min/1.73m2 URINALYSIS - Abnormal APPEARANCE Clear Clear COLOR Yellow Yellow PH 5.0 4.8 - 8.0 SP GRAVITY 1.021 1.003 - 1.030 GLU U QUAL Normal Normal BLOOD Negative Negative KETONES Negative Negative PROTEIN Negative Negative UROBILIN Normal Normal BILIRUBIN Negative Negative NITRITE Negative Negative LEUK ILAN Negative Negative RBC/HPF 1 0 - 3 HPF WBC/HPF 1 0 - 5 HPF BACTERIA Negative Negative MUCOUS Slight (*) Negative LPF SQ EPITH 14 HPF CA OXALATE 1 <=1 HPF MAGNESIUM - Normal MAGNESIUM 2.3 1.7 - 2.4 mg/dL COVID-19 (ID NOW RAPID TESTING) - Normal SARS-CoV-2 Rapid ID NOW Not Detected Not Detected RAPID STREP SCREEN FOR GROUP A - Normal Molecular Strep Negative Negative POCT TEST - Normal POCT PREG Negative On board controls acceptable with C Line Yes POCT PREG LOT # [id number] POCT PREG TEST DATE THROAT CULTURE EKG: If EKG completed, see Procedure Note. Orders and Treatments: Orders Placed This Encounter Procedures Cbc with Diff Comp. Metabolic Panel (47170) Magnesium Urinalysis COVID-19 (ID Now Rapid Testing) Rapid Strep Screen For Group A POCT TEST Throat Culture Lab Only COVID Interpretation Orders Placed This Encounter Medications NaCl 0.9% (NS) bolus infusion 1,000 mL LORATADINE ORAL B Complex Vitamins tablet Cholecalciferol, Vitamin D3, (VITAMIN D3) 125 mcg (5,000 unit) tablet First Provider Eval: ED Events Date/Time Event User Comments 01/26/24 1357 Medical Screening Begins ABEL SANTO MD -- 01/26/24 1357 First Provider Evaluation ABEL SANTO MD -- ED COURSE Patient's condition stable, no significant abnormalities on her lab work or physical exam to explain the symptoms described, will DC Home with instructions to follow up with his PCP. Diagnosis/Impression as of 01/26/24 1536 Weakness Procedures: Procedures MDM: Medical Decision Making Problems Addressed: Weakness: self-limited or minor problem Amount and/or Complexity of Data Reviewed Independent Historian: Details: at bed side provided additional information about her case External Data Reviewed: labs and notes. Details: From previous visits reviewed Labs: ordered. Decision-making details documented in ED Course. Risk OTC drugs. Prescription drug management. Flowsheet Documentation: Scoring Tools: No data recorded Disposition/Condition: ED Disposition ED Disposition Disch - Home Condition Stable Comment -- Discharge Medications: Patient's Medications START taking these medications B COMPLEX VITAMINS TABLET Take 1 tablet by mouth in the morning. CHOLECALCIFEROL, VITAMIN D3, (VITAMIN D3) 125 MCG (5,000 UNIT) TABLET Take 1 tablet by mouth in the morning. CONTINUE taking these medications which have NOT CHANGED FERROUS SULFATE 325 MG (65 MG IRON) EC TABLET Take 1 tablet by mouth in the morning and 1 tablet at noon and 1 tablet in the evening. Take with meals. LORATADINE ORAL Take 10 mg by mouth in the morning and 10 mg in the evening. SERTRALINE 25 MG TABLET TAKE BY MOUTH 1/2 TABLET IN THE MORNING TRAZODONE 50 MG TABLET Take 0.5 tablets by mouth at bedtime. START taking Modified Medications as Prescribed No medications on file STOP taking these medications No medications on file Follow-up: Contact information for follow-up Les Soto NP Specialty: FUEL VERIFICATION TECHNICIAN-FAMILY Relationship: PCP - General [facility] [address] [place] [id number] Instructions: If symptoms worsen Electronically signed by: Abel Santo MD 01/26/24 1536 [place] [id number] 15:45:37 Addended by: JENA ROA on: 01/17/2024 03:45 PM Modules accepted: Orders [place] [id number] 15:43:58 Order for in-lab diagnostic sleep study placed. Jena Palacios APRN, FNP-C [facility], [address], [facility] Floor [facility] [address] Dept: [phone] Dept [place] [address]-06-18 10:15:00 Images from the original note were not included. Venipuncture collection performed by clean technique on the left anticubitus. Total of 1 attempts were made. Slight pressure and a bandage/dressing were applied to the site(s). The patient experienced no complications. The following specimens were processed according to instructions and sent to [facility] laboratories per lab order on 01/17/2024: LT BLUE SST 1 RED LAV PPT DK GREEN (LiHep) DK GREEN (SodH) [place] DK BLUE (K2) DK BLUE (S) ACD Blood Culture [facility]D [id number] 09:45:00 Images from the original note were not included. Venipuncture collection performed by clean technique on the left anticubitus. Total of 1 attempts were made. Slight pressure and a bandage/dressing were applied to the site(s). The patient experienced no complications. The following specimens were processed according to instructions and sent to [facility] laboratories per lab order on 01/02/2024: LT BLUE SST 2 RED LAV 1 PPT DK GREEN (LiHep) DK GREEN (SodH) [place] DK BLUE (K2) DK BLUE (S) ACD Blood Culture NIPT/NTD [place] [id number] 10:44:35 Images from the original note were not included. Last OV:09/19/23 with Jazmin Adams FNP Last Refill:10/06/23 prescribed by Jazmin Adams FNP Last Labs Pertaining to Med: Future Appt: Patient states she only has a few more pill to last her this week. 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 DX Code Needed. Psychiatry: Antidepressants Ioajhf5511/08/2023 09:34 AM Protocol Details Manual Review: Verify no changes in dose in the last 3 months Valid encounter within last 12 months This request has changes from the previous prescription. To be filled at: [facility]/pharmacy #[id number] - [facility] [address] Malika Mendoza MAAdams County Regional Medical CenterWexxoo7479-05-32 14:00:00 Images from the original note were not included. Venipuncture collection performed by clean technique on the left anticubitus. Total of 1 attempts were made. Slight pressure and a bandage/dressing were applied to the site(s). The patient experienced no complications. The following specimens were processed according to instructions and sent to [facility] per lab order on 10/28/2023 : LT BLUE SST 1 RED LAV 1 PPT DK GREEN (LiHep) DK GREEN (SodH) [place] DK BLUE (K2) DK BLUE (S) ACD Blood Culture NIPT/NTD [facility] [id number] 14:52:22 Images from the original note were not included. Routed to provider for review. Unable to refill per ambulatory refill guidelines. Notes: SERTraline 25 mg tablet Possible duplicate: Hover to review recent actions on this medication Sig: Take 0.5 tablets by mouth in the morning. Disp: 15 tablet Refills: 2 Start: 10/05/2023 Class: eRX For: Depression with anxiety Last ordered: 2 weeks ago (09/19/2023) by OSCAR Mendoza Psychiatry: Antidepressants Tspbtr1810/05/2023 02:17 PM Protocol Details Manual Review: Verify no changes in dose in the last 3 months Valid encounter within last 12 months amitriptyline 10 mg tablet Possible duplicate: Hover to review recent actions on this medication Sig: Take 1 tablet by mouth at bedtime. Disp: 90 tablet Refills: 1 Start: 10/05/2023 Class: eRX For: Depression with anxiety, Primary insomnia Last ordered: 2 weeks ago (09/19/2023) by OSCAR Mendoza Neuropathic Pain Hobwsg2810/05/2023 02:17 PM Protocol Details Manual Review: Verify no changes in dose in the last 3 months Valid encounter within last 12 months To be filled at: [facility]/pharmacy #[id number] [facility] [address] [place] [address] Last Refilled: 09/19/2023 Recent Visits Date Type Provider Dept 09/19/23 Office Visit Jazmin Adams FNP [facility] 06/27/23 Office Visit Jazmin Adams FNP [facility] Showing recent visits within past 540 days with a meds authorizing provider and meeting all other requirements Future Appointments Date Type Provider Dept 10/17/23 Appointment Jazmin Adams FNP [facility] Showing future appointments within next 150 days with a meds authorizing provider and meeting all other requirements MOTIVE DETAILER [facility] 14:16:10 Kallie Johnson is a 33 year old female Patient request her medications be sent to new pharmacy . Please Advise amitriptyline 10 mg tablet SERTraline 25 mg tablet [facility]/pharmacy #[id number] - [facility] [place] [facility] [address] [facility] [id number] 15:44:19 Images from the original note were not included. Last OV:06/27/23 with HIPOLITO Wolf Last Refill:07/28/23 prescribed by HIPOLITO Wolf Last Labs Pertaining to Med:n/a Future Appt:n/a Routed to provider for review. Unable to refill per ambulatory refill guidelines and pt is requesting an increase in strength. amitriptyline 10 mg tablet Sig: Take 1 tablet by mouth at bedtime. Disp: 30 tablet Refills: 0 Start: 08/25/2023 Class: eRX For: Primary insomnia, Depression with anxiety Last ordered: 4 weeks ago (07/28/2023) by OSCAR Mendoza Neuropathic Pain Bynyix5808/25/2023 11:14 AM Protocol Details Manual Review: Verify no changes in dose in the last 3 months Valid encounter within last 12 months Neuropathic Pain Failed Rerun Protocol (08/25/2023 11:14 AM) Manual Review: Verify no changes in dose in the last 3 months Valid encounter within last 12 months Recent Visits Date Type Provider Dept 06/27/23 Office Visit Jazmin Adams FNP [facility] Showing recent visits within past 365 days and meeting all other requirements Future Appointments No visits were found meeting these conditions. Showing future appointments within next 365 days and meeting all other requirements MOTIVE DETAILER Robin Bangura RNAdams County Regional Medical CenterWcsyla8487-06-07 11:10:37 Kallie Johnson is a 33 year old female Pt calling req for a refill/increase in med dosage. Pt is stating it takes her 4+ hours for the medicine to kick in. Please advise. [phone] (home) [phone] (work) [facility]2023-12-28 14:01:32 Routed to provider Malika Mendoza MA 07/28/2023 2:01 PM MOTIVE DETAILER Malika Mendoza MAAdams County Regional Medical CenterEhzuem4948-47-01 13:51:01 Kallie Johnson is a 33 year old female that is following up on medication venlafaxine XR 37.5 mg 24 hr capsule. The pt states that the medication has nasty side effects and would like to discuss changing medication on her next appt. Please advise. [facility] Jessica AlejandreAdams County Regional Medical [id number] 16:06:08 Routing to provider. MOTIVE DETAILER Rehana Martin MAAdams [facility] Regional Medical CenterVngbww0539-62-94 14:59:15 Kallie Johnson is a 33 year old female calling in stating that the Rx venlafaxine XR 37.5 mg 24 hr capsule is too strong causing mood swings (anger,anxiety) and making her groggy.Please advise [facility]
[2024-11-22 12:20] LABS: Influenza A Ag Negative; Influenza B Ag Negative; SARS-CoV-2 Antigen Rapid Res Negative (Negative)
--- NOTE | 2024-11-22 12:49 | EDPHYS ---
Physician Documentation [facility] Name: Kallie Bethea Age: 34 yrs Sex: Female : 1990 Arrival Date: 11/22/2024 Time: 11:14 Bed 15 Private MD: ED Physician Adelso Koenig HPI: 11/22 12:45 This 34 yrs old Female presents to ER via Ambulatory with complaints of Flu berto Symptoms. 12:45 The patient or guardian reports airway noise, cough, difficulty breathing. Onset: The berto symptoms/episode began/occurred 2 day(s) ago. Modifying factors: The symptoms are alleviated by nothing. the symptoms are aggravated by nothing. Associated signs and symptoms: Pertinent positives: rhinorrhea, sore throat. Severity of symptoms: At their worst the symptoms were mild moderate in the emergency department the symptoms have improved. The patient has experienced similar episodes in the past, several times. 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 - Infectious Disease History:: Denies. - Social history:: Smoking status: Patient denies any tobacco usage or history of. ROS: 12:47 Constitutional: Negative for fever, chills, and weight loss, Eyes: Negative for injury, berto pain, redness, and discharge, ENT: Negative for injury, pain, and discharge, Neck: Negative for injury, pain, and swelling, Cardiovascular: Negative for chest pain, palpitations, and edema, Abdomen/GI: Negative for abdominal pain, nausea, vomiting, diarrhea, and constipation, Back: Negative for injury and pain, : Negative for injury, bleeding, discharge, and swelling, MS/Extremity: Negative for injury and deformity, Skin: Negative for injury, rash, and discoloration, Neuro: Negative for headache, weakness, numbness, tingling, and seizure, Psych: Negative for depression, anxiety, suicide ideation, homicidal ideation, and hallucinations, Allergy/Immunology: Negative for hives, rash, and allergies, Endocrine: Negative for neck swelling, polydipsia, polyuria, polyphagia, and marked weight changes, Hematologic/Lymphatic: Negative for swollen nodes, abnormal bleeding, and unusual bruising, 12:47 Respiratory: Positive for cough, "sounds productive", Exam: 12:47 Constitutional: This is a well developed, well nourished patient who is awake, alert, berto and in no acute distress. Head/Face: Normocephalic, atraumatic. Eyes: Pupils equal round and reactive to light, extra-ocular motions intact. Lids and lashes normal. Conjunctiva and sclera are non-icteric and not injected. Cornea within normal limits. Periorbital areas with no swelling, redness, or edema. ENT: Nares patent. No nasal discharge, no septal abnormalities noted. Tympanic membranes are normal and external auditory canals are clear. Oropharynx with no redness, swelling, or masses, exudates, or evidence of obstruction, uvula midline. Mucous membranes moist. Neck: Trachea midline, no thyromegaly or masses palpated, and no cervical lymphadenopathy. Supple, full range of motion without nuchal rigidity, or vertebral point tenderness. No Meningismus. Chest/axilla: Normal chest wall appearance and motion. Nontender with no deformity. No lesions are appreciated. Cardiovascular: Regular rate and rhythm with a normal S1 and S2. No gallops, murmurs, or rubs. Normal PMI, no JVD. No pulse deficits. Respiratory: Lungs have equal breath sounds bilaterally, clear to auscultation and percussion. No rales, rhonchi or wheezes noted. No increased work of breathing, no retractions or nasal flaring. Abdomen/GI: Soft, non-tender, with normal bowel sounds. No distension or tympany. No guarding or rebound. No evidence of tenderness throughout. Back: No spinal tenderness. No costovertebral tenderness. Full range of motion. Skin: Warm, dry with normal turgor. Normal color with no rashes, no lesions, and no evidence of cellulitis. MS/ Extremity: Pulses equal, no cyanosis. Neurovascular intact. Full, normal range of motion., bilateral aka Neuro: Awake and alert, GCS 15, oriented to person, place, time, and situation. Cranial nerves II-XII grossly intact. Motor strength 5/5 in all extremities. Sensory grossly intact. Cerebellar exam normal. Normal gait. Psych: Awake, alert, with orientation to person, place and time. Behavior, mood, and affect are within normal limits. 12:47 Musculoskeletal/extremity: ROM: intact in all extremities, full active range of motion, full passive range of motion, Circulation is intact in all extremities. Sensation intact. Compartment Syndrome exam of affected extremity: is normal. Weight bearing: able to fully bear weight, DVT Exam: No signs of deep vein thrombosis. no pain, no swelling, no tenderness, negative Homans' sign noted on exam, no appreciated bluish discoloration, no erythema, no increased warmth, Vital Signs: 11:29 BP 136 / 73; Pulse 79; Resp 14; Temp 98.6(O); Pulse Ox 100% on R/A; Weight 77.11 kg; ss Height 5 ft. 0 in. ; Pain 6/10; 13:45 BP 121 / 60; Pulse 60; Resp 20; Pulse Ox 98% on R/A; kj2 14:49 BP 123 / 58; Pulse 62; Resp 18; Pulse Ox 100% ; kj2 15:08 BP 125 / 82; Pulse 64; Resp 18; Temp 98; Pulse Ox 100% on R/A; kj2 11:29 Body Mass Index 33.20 (77.11 kg, 152.4 cm) ss 11:29 Pain Scale: Adult ss MDM: 11:21 Medical Screening Exam initiated [facility] 11:44 Medical Screening Exam initiated [facility] 14:54 Differential diagnosis: bronchitis, flu, URI. Antibiotic administration: The patient is [facility] discharged and will get outpatient antibiotics, Zithromax. Differential Diagnosis: Bronchitis Influenza Upper Respiratory Infection Sinusitis Pharyngitis Otitis Media Viral Syndrome Pneumonia. Data reviewed: vital signs, nurses notes, lab test result(s), EKG. Consideration of Admission/Observation Escalation of care including admission/observation considered. I considered the following discharge prescriptions or medication management in the emergency department Medications were administered in the Emergency Department. See MAR. Independent interpretation of the following test(s) in the Emergency Department EKG: See my EKG interpretation above. Test considered but Not performed: X-ray: NO CXR. Historians other than the Patient: Parent: DAD WELL INFORMED. Counseling: I had a detailed discussion with the patient and/or guardian regarding the historical points, exam findings, and any diagnostic results supporting the discharge/admit diagnosis, lab results, radiology results, the need for outpatient follow up, for definitive care, a radiation / chemistry technician, a family practitioner. 11/22 11:22 Order name: COVID-19 Ag + Flu A+B Ag; Complete Time: 12:42 [facility] 11/22 11:22 Order name: Group A Streptococcus Rapid; Complete Time: 12:42 [facility] 11/22 12:04 Order name: Throat Culture EDNC 11/22 13:02 Order name: CBC with Diff; Complete Time: 14:56 [facility] 11/22 13:02 Order name: Troponin HS [facility] 11/22 13:02 Order name: CBC with Diff [facility] 11/22 13:02 Order name: B12 [facility] 11/22 13:02 Order name: Comprehensive Metabolic Panel [facility] 11/22 13:04 Order name: TSH; Complete Time: 14:56 [facility] 11/22 13:02 Order name: EKG; Complete Time: 13:03 [facility] 11/22 13:02 Order name: EKG - Nurse/Tech; Complete Time: 14:42 [facility] 11/22 14:57 Order name: PO challenge: JUICE berto Administered Medications: 14:19 Drug: AZITHromycin PO 500 mg PO once Route: PO; kj2 15:10 Follow up: Response: No adverse reaction kj2 14:19 Drug: NS 0.9% IV 1000 ml IV at 1000 ml once; to be given as a bolus over 60 minutes kj2 Route: IV; Rate: 1000 ml; Site: left antecubital; Disposition Summary: 11/22/24 14:57 Discharge Ordered Notes: Location: Home(11/22/24 14:57) berto Problem: new(11/22/24 14:57) berto Symptoms: have improved(11/22/24 14:57) berto Condition: Stable(11/22/24 14:57) berto Diagnosis - Weakness berto - Other malaise and fatigue(11/22/24 14:57) berto Followup: berto - With: Private Physician - When: 2 - 3 days - Reason: Recheck today's complaints, Continuance of care, Re-evaluation by your physician Discharge Instructions: - Discharge Summary Sheet berto - Weakness berto - Fatigue berto - Weakness, [id number] berto - Deconditioning berto Forms: - Medication Reconciliation Form berto - Antibiotic Education berto - Prescription Opioid Use berto - Patient Portal Instructions berto - Leadership Thank You Letter [facility] - Work release form kj2 Prescriptions: - Zithromax Z-Spenser 250 mg Oral Tablet - take 1 tablet ORAL route as directed for 5 days Day 1 - take two (2) tablets berto one time. Day 2, 3, 4 , 5 take one (1) tablet once daily.; 6 tablet; Refills: 0, Product Selection Permitted Signatures: Dispatcher [employer] EDMS Adelso Koenig MD MD cha Blanchard, Shelby, RN RN ss Aminata Townsend RN RN kj2 Corrections: (The following items were deleted from the chart) 11: 11:22 COVID-19 Ag + Flu A+B Ag+I.LAB.BRZ ordered. EDMS EDMS : 11:22 Group A Streptococcus Rapid Sc+I.LAB.BRZ ordered. EDMS EDMS 11: 11:31 Allergies: Pineapple; ss ss 13:01 12:49 Home [facility] 13:01 12:49 new [facility] 13:01 12:49 have improved [facility] 13: 12:49 Stable [facility] 13:01 12:49 Acute upper respiratory infection, unspecified [facility] 13:01 12:49 Cough [facility] 13:01 12:49 Other malaise and fatigue [facility]
--- NOTE | 2024-11-22 12:49 | ER ---
Nurse's Notes [facility] Name: Kallie Bethea Age: 34 yrs Sex: Female : 1990 Arrival Date: 11/22/2024 Time: 11:14 Bed 15 Private MD: Diagnosis: Weakness;Other malaise and fatigue Presentation: 11/22 11:29 Chief complaint: Patient states: fatigue, body aches and lightheadedness that began ss yesterday, is worse today. Coronavirus screen: Client denies travel out of the [place] in the last 14 days. Ebola Screen: Patient denies exposure to infectious person. Patient denies travel to an Ebola-affected area in the 21 days before illness onset. Initial Sepsis Screen: Does the patient meet any 2 criteria? No. Patient's initial sepsis screen is negative. Does the patient have a suspected source of infection? No. Patient's initial sepsis screen is negative. Risk Assessment: Do you want to hurt yourself or someone else? Patient reports no desire to harm self or others. Onset of symptoms was November 21, 2024. 11:29 Method Of Arrival: Ambulatory ss 11:29 Acuity: KRUPA 4 ss RELIEF MATE: 11:31 LMP 11/20/2024, unknown ss Historical: - Allergies: 11:31 Cantaloupe; ss 11:31 Coconut; ss 11:31 tomato; ss 11:31 AVOCADO (LAURUS PERSEA); ss - PMHx: 11:31 Anxiety; bowel obstruction; insomnia; ss - PSHx: 11:31 Exploratory laparotomy; ureter repair; ss - Immunization history:: Adult Immunizations unknown. - Infectious Disease History:: Denies. - Social history:: Smoking status: Patient denies any tobacco usage or history of. Screenin:45 [facility] ED Fall Risk Assessment (Adult) History of falling in the last 3 months, kj2 including since admission No falls in past 3 months (0 pts) Confusion or Disorientation No (0 pts) Intoxicated or Sedated No (0 pts) Impaired Gait No (0 pts) Mobility Assist Device Used No (0 pt) Altered Elimination No (0 pt) Score/Fall Risk Level 0 - 2 = Low Risk Maintained a safe environment, Hourly rounding (assess needs \T\ fall precautionary measures) done. Abuse screen: Denies threats or abuse. Denies injuries from another. Nutritional screening: No deficits noted. Tuberculosis screening: No symptoms or risk factors identified. Assessment: 13:45 General: Appears in no apparent distress. Behavior is calm, cooperative. Pain: kj2 Complains of pain in generalized Pain. Neuro: Level of Consciousness is awake, alert, obeys commands, Oriented to person, place, time, situation. Cardiovascular: Patient's skin is warm and dry. Respiratory: Airway is patent Respiratory effort is even, unlabored. GI: No signs and/or symptoms were reported involving the gastrointestinal system. : No signs and/or symptoms were reported regarding the genitourinary system. 14:49 Reassessment: Patient appears in no apparent distress at this time. Patient and/or kj2 family updated on plan of care and expected duration. Pain level reassessed. Patient is alert, oriented x 3, equal unlabored respirations, skin warm/dry/pink. 15:07 Reassessment: Patient appears in no apparent distress at this time. Patient and/or kj2 family updated on plan of care and expected duration. Pain level reassessed. Patient is alert, oriented x 3, equal unlabored respirations, skin warm/dry/pink. Vital Signs: 11:29 BP 136 / 73; Pulse 79; Resp 14; Temp 98.6(O); Pulse Ox 100% on R/A; Weight 77.11 kg; ss Height 5 ft. 0 in. ; Pain 6/10; 13:45 BP 121 / 60; Pulse 60; Resp 20; Pulse Ox 98% on R/A; kj2 14:49 BP 123 / 58; Pulse 62; Resp 18; Pulse Ox 100% ; kj2 15:08 BP 125 / 82; Pulse 64; Resp 18; Temp 98; Pulse Ox 100% on R/A; kj2 11:29 Body Mass Index 33.20 (77.11 kg, 152.4 cm) ss 11:29 Pain Scale: Adult ss ED Course: 11:17 Patient arrived in ED. im 11:21 Adelso Koenig MD is Attending Physician. berto 11:31 Triage completed. ss 11:31 Arm band placed on right wrist. ss 11:38 Group A Streptococcus Rapid Sent. ss 11:38 COVID-19 Ag + Flu A+B Ag Sent. ss 13:39 Aminata Townsend, RN is Primary Nurse. kj2 13:45 Patient has correct armband on for positive identification. Bed in low position. Call kj2 light in reach. Provided Education on: call light. 14:00 Inserted saline lock: 20 gauge in left antecubital area, using aseptic technique. Blood kj2 collected. Flushed with 10 mL NS. 14:00 No provider procedures requiring assistance completed. kj2 14:19 CBC with Diff Sent. kj2 15:09 Throat Culture Sent. kj2 15:10 IV discontinued, intact, bleeding controlled, No redness/swelling at site. Pressure kj2 dressing applied. Administered Medications: 14:19 Drug: AZITHromycin PO 500 mg PO once Route: PO; kj2 15:10 Follow up: Response: No adverse reaction kj2 14:19 Drug: NS 0.9% IV 1000 ml IV at 1000 ml once; to be given as a bolus over 60 minutes kj2 Route: IV; Rate: 1000 ml; Site: left antecubital; Medication: 14:00 VIS not applicable for this client. kj2 Outcome: 12:49 Discharge ordered by . berto 14:57 Discharge ordered by . berto 15:10 Discharged to home ambulatory, kj2 15:10 Condition: stable 15:10 Discharge instructions given to patient, Instructed on discharge instructions, follow up and referral plans. Demonstrated understanding of instructions, follow-up care, 15:25 Patient left the ED. kj2 Signatures: Adelso Koenig MD MD cha Blanchard, Shelby, RN RN Kaleigh Dickinson Krystal, RN RN kj2 Corrections: (The following items were deleted from the chart) 11:31 11:31 Allergies: Pineapple; [facility] 14:53 14:51 BP 121 / 60; Pulse 60bpm; Resp 20bpm; Pulse Ox 98% RA; kj2 kj2
[2024-11-22] MEDS ORDERED: AZITHROMYCIN 250 MG TAB ONE (13:43)
[2024-11-22] MEDS ORDERED: NA CHLORIDE 0.9% 1,000 ML ONE (13:44)
[2024-11-22 14:25] LABS: Absolute Lymphocytes (CBC) 1.4 K/uL (0.7-4.9); Absolute Monocytes 0.4 K/uL (0.1-1.3); Absolute Neutrophil 9.3 K/uL (1.8-8.0); Basophils % 0.4 % (0-1.3); Eosinophils % 0.4 % (0-4.4); Hematocrit 42.5 % (36.0-45.0); Hemoglobin 14.3 g/dL (12.0-15.0); Lymphocytes % 12.5 % (15.3-44.8); MCH 29.1 pg (27.0-35.0); MCHC 33.7 g/dL (32.0-36.0); MCV 86.5 fL (80-100); MPV 9.4 fL (7.6-11.3); Neutrophils % 82.7 % (41.7-73.7); Platelets 261 thou/uL (152-406); RBC Red Blood Cell Count 4.92 M/uL (3.86-4.86); Red Cell Distribution Width 14.3 % (12.1-15.2)
[2024-11-22 14:52] LABS: ALT/SGPT 25 U/L (13-56); AST/SGOT 14 U/L (15-37); Albumin/Globulin Ratio 1.1 (1.1-1.8); Alkaline Phosphatase 92 U/L (45-117); Anion Gap 7.9 mEq/L (5.0-15.0); BUN Blood Urea Nitrogen 8 mg/dL (7-18); Bicarbonate 26 mEq/L (21-32); Bilirubin Total 0.5 mg/dL (0.2-1.0); Globulin 3.6 g/dL (2.3-3.5); Glomerular Filtration Rate 99 ml/min (=/>90); Glucose Level 106 mg/dL (74-106); Potassium 3.9 mEq/L (3.5-5.1); Protein, Total 7.6 g/dL (6.4-8.2); Sodium Level 138 mEq/L (136-145)
[2024-11-22 14:55] LABS: Troponin High Sensitivity < 3.0 pg/mL (<58.9)
[2024-11-22 17:17] VITALS: O2SAT 100
[2024-11-22 17:18] VITALS: BP 125/82; TEMP 98
--- NOTE | 2024-11-26 12:22 | EKG ---
Test Date: 2024-11-22 Test Time: 14:38:08 Independent Jeweler: MELA MEASUREMENT RESULTS: Intervals: Rate: 77 [place]: 154 QRSD: 102 QT: 392 QTc: 443 [place]: P: 63 [place]: 154 QRS: -5 T: 57 INTERPRETIVE STATEMENTS: Normal sinus rhythm with sinus arrhythmia Incomplete right bundle branch block Cannot rule out Anterior infarct, age undetermined Abnormal ECG No previous ECG available for comparison Electronically Signed On 11-26-24 12:11:36 CDT by Isiah Castillo
== END 2024-11-22 15:25 | disposition home or self-care (01) ==
LOC: ER 11:14
DX: R53.1 Weakness (principal); R53.81 Other malaise; R53.83 Other fatigue; R05.9 Cough, unspecified; Z11.52 Encounter for screening for COVID-19
CPT/HCPCS: 93005; 87070; 85025; 36415; 84443; 84484; 82607; 80053; 99284; 87428; J7030